=== PATIENT | male | born 1930 | race Caucasian/White ===

== ENCOUNTER 2017-02-28 10:20 | Day surgery (SDC) | payer MEDICARE ==
[~2017-02-28 10:20] MED LIST: ALLO100T30 PO; ATOR40TA PO; LEVE500T53 PO; LEVO75TA33 PO; LISI1TAB7 PO; OMEP40CA6 PO
[2017-02-28] MEDS ORDERED: SODIUM CHLORIDE 0.9% 1,000 ML IV SCH (10:31)
[2017-02-28 10:48] VITALS: BP 145/87
[2017-02-28] MEDS ORDERED: PLEASE ENTER HEIGHT AND WEIGHT MC SCH (11:00)
[2017-02-28] MEDS ORDERED: CEFAZOLIN PMX 1GM/50ML 50 ML IVPB ONE (11:00)
[2017-02-28] MEDS ORDERED: PLEASE ENTER ALLERGIES MC SCH ×2 (11:00)
[2017-02-28] MEDS ORDERED: OMEP40CA6 PO (11:08)
[2017-02-28] MEDS ORDERED: METF500T4 PO (11:08)
[2017-02-28] MEDS ORDERED: MULT-6 PO (11:09)
[2017-02-28] MEDS ORDERED: METO25TA2 PO (11:19)
[2017-02-28 11:42] LABS: BLOOD UREA NITROGEN 26 mg/dL (7-18)
[2017-02-28] MEDS ORDERED: MIDAZOLAM 1 MG/ML, 5ML ONE (12:02)
[2017-02-28] MEDS ORDERED: FENTANYL PF 100 MCG/2ML ONE (12:02)
[2017-02-28] MEDS ORDERED: CEFAZOLIN PMX 1GM/50ML 50 ML ONE (12:03)
[2017-02-28] MEDS ORDERED: LIDOCAINE 2%, 20ML ONE (12:03)
[2017-02-28] MEDS ORDERED: CEFAZOLIN 1,000 MG ONE (12:03)
[2017-02-28] MEDS ORDERED: CEPH-368 PO (12:54)
== END 2017-02-28 15:03 | disposition home or self-care (01) ==
LOC: CACL 10:20
PROVIDERS: ATTEND Internal Medicine Cardiovascular Disease
DX: Z45.010 Encounter for checking and testing of cardiac pacemaker pulse generator [battery] (principal); I49.5 Sick sinus syndrome; I10 Essential (primary) hypertension; E11.9 Type 2 diabetes mellitus without complications; F10.10 Alcohol abuse, uncomplicated; I25.10 Atherosclerotic heart disease of native coronary artery without angina pectoris; E78.5 Hyperlipidemia, unspecified; Z87.891 Personal history of nicotine dependence; E03.9 Hypothyroidism, unspecified
CPT/HCPCS: 33228; 36415; 80048; 85025; 85610; 99152; C1785; J0690; J2250; J3010; J3490

== ENCOUNTER 2017-04-19 18:10 | Emergency (ER) | payer MEDICARE ==
[~2017-04-19] VITALS: Ht 165.1 cm; Wt 80.0 kg
[~2017-04-19 18:10] MED LIST changes: +CEPH-368 PO; +METF500T4 PO; +METO25TA2 PO; +MULT-6 PO
[2017-04-19] MEDS ORDERED: SODIUM CHLORIDE FLUSH 10ML SYR IVF ONE (18:30)
[2017-04-19 19:12] LABS: BLOOD UREA NITROGEN 30 mg/dL (7-18)
[2017-04-19 19:19] LABS: IS PT STATUS REG ER OR PRE ER? YES
[2017-04-19 20:04] VITALS: BP 122/64
[2017-04-19] MEDS ORDERED: RIVAROXABAN 15 MG TABLET PO ONE (20:30)
== END 2017-04-19 21:07 | disposition home or self-care (01) ==
LOC: ED 19:29
DX: I48.92 Unspecified atrial flutter (principal); E11.9 Type 2 diabetes mellitus without complications; E78.5 Hyperlipidemia, unspecified; I10 Essential (primary) hypertension; Z87.891 Personal history of nicotine dependence; Z95.0 Presence of cardiac pacemaker
CPT/HCPCS: 36415; 71010; 80048; 82040; 83735; 83880; 84436; 84443; 84484; 85025; 85610; 85730; 93005

== ENCOUNTER 2017-06-04 10:00 | Day surgery (SDC) | payer MEDICARE ==
[~2017-06-04] VITALS: Ht 165.1 cm; Wt 81.8 kg
[2017-06-04 11:41] VITALS: BP 141/83
[2017-06-04] MEDS ORDERED: RIVA15TA PO (11:52)
[2017-06-04] MEDS ORDERED: ALBU8.5H3 IH (11:52)
[2017-06-04] MEDS ORDERED: PROPOFOL 10 MG/ML, 20ML ONE (12:13)
== END 2017-06-04 13:30 | disposition home or self-care (01) ==
LOC: CACL 10:00
PROVIDERS: ATTEND Internal Medicine Cardiovascular Disease
DX: I48.91 Unspecified atrial fibrillation (principal); E11.9 Type 2 diabetes mellitus without complications; I10 Essential (primary) hypertension; E78.5 Hyperlipidemia, unspecified; F17.210 Nicotine dependence, cigarettes, uncomplicated; E03.9 Hypothyroidism, unspecified
CPT/HCPCS: 92960; J2704

== ENCOUNTER 2017-07-23 08:17 | Emergency (ER) | payer MEDICARE ==
[~2017-07-23] VITALS: Ht 165.1 cm; Wt 82.0 kg
[~2017-07-23 08:17] MED LIST changes: +ALBU8.5H8 IH; -LEVO75TA33 PO; +LEVO75TA59 PO; +RIVA15TA PO
[2017-07-23 09:01] LABS: HEMATOCRIT 39.6 % (39.2-51.8); HEMOGLOBIN 13.3 g/dL (13.7-18.0); WHITE BLOOD COUNT 8.2 x10^3/uL (3.4-10)
[2017-07-23 09:10] LABS: BLOOD UREA NITROGEN 15 mg/dL (7-18)
[2017-07-23 10:58] VITALS: BP 120/51
== END 2017-07-23 11:00 | disposition home or self-care (01) ==
LOC: ED 08:49
DX: S80.01XA Contusion of right knee, initial encounter (principal); M25.531 Pain in right wrist; M87.837 Other osteonecrosis of right carpus; E11.9 Type 2 diabetes mellitus without complications; E78.5 Hyperlipidemia, unspecified; I10 Essential (primary) hypertension; W01.0XXA Fall on same level from slipping, tripping and stumbling without subsequent striking against object, initial encounter; Y93.89 Activity, other specified; Y92.009 Unspecified place in unspecified non-institutional (private) residence as the place of occurrence of the external cause; Y99.9 Unspecified external cause status
CPT/HCPCS: 29125; 36415; 70450; 72125; 80048; 82040; 85025; 85610; 93005; 99285

== ENCOUNTER 2017-10-04 09:52 | Inpatient (IN) | payer MEDICARE ==
[~2017-10-04] VITALS: Ht 165.1 cm; Wt 77.7 kg
[2017-10-04 10:34] VITALS: BP 150/74
[2017-10-04] MEDS ORDERED: TAMS-11 PO (10:42)
[2017-10-04] MEDS ORDERED: ACETAMINOPHEN 325 MG TABLET PO PRN (12:00)
[2017-10-04 12:05] LABS: HEMATOCRIT 38.8 % (39.2-51.8); HEMOGLOBIN 13.2 g/dL (13.7-18.0)
[2017-10-04 12:06] LABS: BLOOD UREA NITROGEN 17 mg/dL (7-18)
[2017-10-04 12:16] LABS: IS PT STATUS REG ER OR PRE ER? NO
[2017-10-04 14:01] VITALS: BP 149/94
[2017-10-04] MEDS: metFORMIN 500 MG TABLET PO SCH (16:32)
[2017-10-04] MEDS: AMIODARONE 200 MG TABLET PO SCH ×2 (16:32→21:43)
[2017-10-04 17:03] LABS: IS PT STATUS REG ER OR PRE ER? YES
[2017-10-04 21:00] VITALS: BP 151/92
[2017-10-04] MEDS: TOLTERODINE LA 2MG CAP.ER.24H PO SCH (21:00)
[2017-10-04] MEDS: SODIUM CHLORIDE FLUSH 10ML SYR IVF SCH (21:43)
[2017-10-04] MEDS: ATORVASTATIN 80 MG TABLET PO SCH (21:44)
[2017-10-04] MEDS: LEVETIRACETAM 500 MG TABLET PO SCH (21:44)
[2017-10-04 22:33] LABS: IS PT STATUS REG ER OR PRE ER? NO
[2017-10-05 00:17] VITALS: BP 142/86
[2017-10-05] MEDS: METOPROLOL SUCCINATE 25 MG TAB.ER.24H PO SCH (05:41)
[2017-10-05] MEDS: LEVOTHYROXINE 75 MCG TABLET PO SCH (05:41)
[2017-10-05 07:22] VITALS: BP 160/91
[2017-10-05] MEDS: LEVETIRACETAM 500 MG TABLET PO SCH ×2 (08:09→21:45)
[2017-10-05] MEDS: ALLOPURINOL 100 MG TABLET PO SCH (08:09)
[2017-10-05] MEDS: metFORMIN 500 MG TABLET PO SCH ×2 (08:10→16:20)
[2017-10-05] MEDS: OMEPRAZOLE 20 MG CAPSULE.DR PO SCH (08:10)
[2017-10-05] MEDS: AMIODARONE 200 MG TABLET PO SCH ×3 (08:10→21:45)
[2017-10-05] MEDS: RIVAROXABAN 15 MG TABLET PO SCH (08:10)
[2017-10-05] MEDS: SODIUM CHLORIDE FLUSH 10ML SYR IVF SCH ×2 (08:11→21:45)
[2017-10-05] MEDS: TOLTERODINE LA 2MG CAP.ER.24H PO SCH ×2 (09:00→21:00)
[2017-10-05 12:20] VITALS: BP 146/92
[2017-10-05 19:38] VITALS: BP 147/85
[2017-10-05] MEDS: ATORVASTATIN 80 MG TABLET PO SCH (21:45)
[2017-10-06 02:00] VITALS: BP 138/86
[2017-10-06 08:00] VITALS: BP 151/81
[2017-10-06] MEDS: METOPROLOL SUCCINATE 25 MG TAB.ER.24H PO SCH (08:15)
[2017-10-06] MEDS: OMEPRAZOLE 20 MG CAPSULE.DR PO SCH (08:16)
[2017-10-06] MEDS: RIVAROXABAN 15 MG TABLET PO SCH (08:16)
[2017-10-06] MEDS: AMIODARONE 200 MG TABLET PO SCH (08:16)
[2017-10-06] MEDS: LEVETIRACETAM 500 MG TABLET PO SCH (08:17)
[2017-10-06] MEDS: metFORMIN 500 MG TABLET PO SCH (08:17)
[2017-10-06] MEDS: SODIUM CHLORIDE FLUSH 10ML SYR IVF SCH (08:17)
[2017-10-06] MEDS: LEVOTHYROXINE 75 MCG TABLET PO SCH (08:17)
[2017-10-06] MEDS: ALLOPURINOL 100 MG TABLET PO SCH (08:17)
[2017-10-06] MEDS ORDERED: OXYBUTYNIN CHLORIDE 5 MG TABLET PO SCH (09:00)
[2017-10-06] MEDS ORDERED: MIDAZOLAM 1 MG/ML, 2ML IV ONE (10:30)
[2017-10-06] MEDS ORDERED: FENTANYL PF 100 MCG/2ML IV ONE (10:30)
[2017-10-06] MEDS ORDERED: FENTANYL PF 100 MCG/2ML ONE (10:46)
[2017-10-06] MEDS ORDERED: MIDAZOLAM 1 MG/ML, 5ML ONE (10:46)
[2017-10-06] MEDS ORDERED: AMIO200T42 PO (11:05)
[2017-10-06 13:41] VITALS: BP 126/84
== END 2017-10-06 16:05 | disposition home or self-care (01) | DRG 309 ==
LOC: 5SO 09:52
PROVIDERS: ADMIT Internal Medicine Cardiovascular Disease; ATTEND Internal Medicine Cardiovascular Disease
PROC: 5A2204Z Restoration of Cardiac Rhythm, Single (ICD-10-PCS; principal; 2017-10-06)
DX: I48.0 Paroxysmal atrial fibrillation (principal); D68.69 Other thrombophilia; I49.5 Sick sinus syndrome; I12.9 Hypertensive chronic kidney disease with stage 1 through stage 4 chronic kidney disease, or unspecified chronic kidney disease; E78.5 Hyperlipidemia, unspecified; I25.10 Atherosclerotic heart disease of native coronary artery without angina pectoris; N18.3 Chronic kidney disease, stage 3 (moderate); Z87.820 Personal history of traumatic brain injury; Z87.891 Personal history of nicotine dependence; Z95.0 Presence of cardiac pacemaker
CPT/HCPCS: 36415; 71010; 80048; 80061; 84439; 84443; 84484; 85014; 85018; 93005

== ENCOUNTER → 2017-12-31 | Outpatient (CLI) | payer MEDICARE ==
[~2017-12-31] MED LIST changes: +AMIO200T42 PO; +TAMS-11 PO
== END ==
LOC: CVU 15:25
PROVIDERS: ATTEND Internal Medicine Cardiovascular Disease
DX: I48.0 Paroxysmal atrial fibrillation (principal)
CPT/HCPCS: 93306

== ENCOUNTER → 2018-08-27 | Outpatient (CLI) | payer MEDICARE ==
[~2018-08-27] MED LIST changes: +METF500T17 PO; -METF500T4 PO
== END | disposition home or self-care (01) ==
LOC: CFH 11:12
PROVIDERS: ATTEND Family Medicine
DX: J98.11 Atelectasis (principal); Z91.81 History of falling

== ENCOUNTER 2019-05-26 10:07 | Day surgery (SDC) | payer MEDICARE ==
[~2019-05-26] VITALS: Ht 165.1 cm; Wt 75.0 kg
[2019-05-26 12:13] VITALS: BP 141/80
== END 2019-05-26 14:00 | disposition home or self-care (01) ==
LOC: CACL 10:07
PROVIDERS: ATTEND Internal Medicine Cardiovascular Disease
DX: I48.0 Paroxysmal atrial fibrillation (principal); E11.22 Type 2 diabetes mellitus with diabetic chronic kidney disease; I12.9 Hypertensive chronic kidney disease with stage 1 through stage 4 chronic kidney disease, or unspecified chronic kidney disease; N18.3 Chronic kidney disease, stage 3 (moderate); I25.10 Atherosclerotic heart disease of native coronary artery without angina pectoris; I34.0 Nonrheumatic mitral (valve) insufficiency; E78.5 Hyperlipidemia, unspecified; E03.9 Hypothyroidism, unspecified; E66.3 Overweight; Z68.27 Body mass index [BMI] 27.0-27.9, adult; Z72.89 Other problems related to lifestyle; Z79.84 Long term (current) use of oral hypoglycemic drugs; Z79.01 Long term (current) use of anticoagulants; Z79.890 Hormone replacement therapy; Z79.899 Other long term (current) drug therapy; Z95.0 Presence of cardiac pacemaker
CPT/HCPCS: 36415; 80048; 92960; J2704

== ENCOUNTER 2019-08-13 14:53 | Emergency (ER) | payer MEDICARE ==
[~2019-08-13] VITALS: Ht 165.1 cm; Wt 71.8 kg
[~2019-08-13 14:53] MED LIST changes: +LEVO75TA5 PO; +LEVO88TA4 PO; +LISI1TAB20 PO; -LISI1TAB7 PO; +TOLT2TAB4 PO
--- NOTE | 2019-08-13 15:41 | NUR ---
FIRST CONTACT WITH PT. REPORTS HE HAS A UTI. PT IS ON NITROFURANTOIN. "IT IS GETTING WORSE HE CAN'T PEE." PT C/O LOWER ABD PAIN. PT'S AOX4. RESPS EVEN AND UNLABORED. ALL MONITORS IN PLACE. CALL LIGHT WITHIN REACH. [place].
--- NOTE | 2019-08-13 16:22 | NUR ---
EDMD AT BEDSIDE. PT STRAIGHT CATH'D PER EDMD VERBAL ORDER. PT STRAIGHT CATH'D USING STERILE TECHNIQUE. PT TOLERATED WELL.
--- NOTE | 2019-08-13 16:35 | NUR ---
UA SENT AT THIS TIME.
[2019-08-13 16:37] VITALS: BP 173/96
--- NOTE | 2019-08-13 16:41 | NUR ---
SOME WATER PROVIDED AT THIS TIME. EDMD NOTIFIED.
[2019-08-13 16:48] LABS: MICROSCOPIC AUTO
[2019-08-13 16:48] LABS: BASOPHILS # (AUTO) 0.03 x10^3/uL (0-0.1); BASOPHILS % (AUTO) 0 % (0-1); EOSINOPHILS # (AUTO) 0.08 x10^3/uL (0-0.4); EOSINOPHILS % (AUTO) 1 % (1-7); LYMPHOCYTES # (AUTO) 0.89 x10^3/uL (1-3.4); LYMPHOCYTES % (AUTO) 11 % (22-44); MD NO; MEAN CORPUSCULAR HEMOGLOBIN 33.8 pg (27.5-34.5); MEAN CORPUSCULAR HGB CONC 32.9 g/dL (33.2-36.2); MEAN CORPUSCULAR VOLUME 102.5 fL (81-97); MEAN PLATELET VOLUME 9.7 fL (7.4-10.4); MONOCYTES # (AUTO) 0.43 x10^3/uL (0.2-0.8); MONOCYTES % (AUTO) 5 % (2-9); NEUTROPHILS # (AUTO) 6.64 x10^3/uL (1.8-6.8); NEUTROPHILS % (AUTO) 82 % (42-75); PLATELET COUNT 201 x10^3/uL (130-400); RED BLOOD COUNT 4.06 x10^6/uL (4.38-5.82); RED CELL DISTRIBUTION WIDTH 14.7 % (9.4-14.8)
[2019-08-13 16:56] LABS: ALBUMIN 2.9 g/dL (3.4-5.0); ANION GAP 12 mmol/L (5-15); CALCIUM 8.2 mg/dL (8.5-10.1); CHLORIDE 105 mmol/L (98-107); CREATININE 1.49 mg/dL (0.7-1.3)
[2019-08-13 16:57] LABS: CULTURE INDICATED? YES
--- NOTE | 2019-08-13 17:53 | NUR ---
Idris lombardi in ED - 08/13/19 at 1754 by JOSE CRUZ PT PROVIDED SMALL BAG FOR CATHETER. PT IS BLEEDING A PILLAI
--- NOTE | 2019-08-13 17:54 | NUR ---
PT IS BLEEDING FROM TIP OF PENIS. EDMD NOTIDIED AND EDMD EVALUATED.
--- NOTE | 2019-08-13 18:00 | NUR ---
Patient given discharge instructions and they have confirmed that they understand the instructions.
== END 2019-08-13 18:01 | disposition home or self-care (01) ==
LOC: ED 17:45
DX: N40.1 Benign prostatic hyperplasia with lower urinary tract symptoms (principal); R33.8 Other retention of urine; I10 Essential (primary) hypertension; E78.5 Hyperlipidemia, unspecified; E11.9 Type 2 diabetes mellitus without complications; M10.9 Gout, unspecified; Z90.89 Acquired absence of other organs
CPT/HCPCS: 36415; 51702; 80048; 81001; 82040; 85025; 87086; 99284

== ENCOUNTER 2019-08-16 10:20 | Emergency (ER) | payer MEDICARE ==
[~2019-08-16] VITALS: Ht 165.1 cm; Wt 68.0 kg
[~2019-08-16 10:20] MED LIST changes: +OMEP40CA42 PO; -OMEP40CA6 PO
--- NOTE | 2019-08-16 10:23 | NUR ---
patient arrives with who rode in ambulance with him from home where he called ems for pain, blood in urine and blood in stool. patient had a catheter placed here on for retention. then saturday he began having blood in stool on saturday. he states he has excrutiating pain in penis. he states his penis was swollen from unknown reasons last preventing urination. reports they stated no infection at that time. he arrives today with pain that began last in penis that has become unbearable. on further investigation of catheter he has a leg bag that has about 300 cc roughly of yellow urine and states she emptied it at 07:00 this morning. the penis is uncircumcised and the penis and when tried to pull the foreskin back it is stuck and there appears to be purulent drainage there. he states he never pulls foreskin back to clean meatus. placed on monitor, rails up. aox4.
--- NOTE | 2019-08-16 10:30 | NUR ---
patients leg back had no leg anchoring device on arrival and he wasnt given a nighttime large urinary drainage bag, and reports no education on care. will place anchor device to leg and review patterson care and get a drainage bag for nighttime. patient to have urology consult.
[2019-08-16 10:59] LABS: BASOPHILS # (AUTO) 0.03 x10^3/uL (0-0.1); BASOPHILS % (AUTO) 0 % (0-1); EOSINOPHILS # (AUTO) 0.18 x10^3/uL (0-0.4); EOSINOPHILS % (AUTO) 3 % (1-7); LYMPHOCYTES # (AUTO) 1.27 x10^3/uL (1-3.4); LYMPHOCYTES % (AUTO) 19 % (22-44); MD NO; MEAN CORPUSCULAR HEMOGLOBIN 34.5 pg (27.5-34.5); MEAN CORPUSCULAR HGB CONC 33.2 g/dL (33.2-36.2); MEAN CORPUSCULAR VOLUME 103.9 fL (81-97); MEAN PLATELET VOLUME 10.7 fL (7.4-10.4); MONOCYTES # (AUTO) 0.46 x10^3/uL (0.2-0.8); MONOCYTES % (AUTO) 7 % (2-9); NEUTROPHILS # (AUTO) 4.83 x10^3/uL (1.8-6.8); NEUTROPHILS % (AUTO) 71 % (42-75); PLATELET COUNT 194 x10^3/uL (130-400); RED BLOOD COUNT 3.73 x10^6/uL (4.38-5.82); RED CELL DISTRIBUTION WIDTH 14.7 % (9.4-14.8)
--- NOTE | 2019-08-16 11:07 | NUR ---
lab to redraw pt
--- NOTE | 2019-08-16 11:18 | NUR ---
URINE SENT. BLOOD REDRAWN AND IN LAB. PATIENT NOW HAS DAUGHTER AND AT BEDSIDE. GOT HIM A NIGHTTIME DRAINAGE BAG FOR HARDING CATHETER AND DID TRAINING ON CHANGING IT OUT, KEEPING DEVICE CLEAN, HARDING CARE WITH SOAP AND WATER DAILY, KEEPING BAGS BELOW LEVEL OF BLADDER FOR DRAINAGE. SHOW UNDERSTANDING.
[2019-08-16 11:34] LABS: ANION GAP 8 mmol/L (5-15); CHLORIDE 110 mmol/L (98-107); CREATININE 1.49 mg/dL (0.7-1.3)
--- NOTE | 2019-08-16 12:03 | NUR ---
rounded on this patient, , and daughter. education provided on the leg bag. was able to verballize the steps and precautions needed to care for the leg bag. Education given to daughter outside of room on switching, draining, cleaning, and repositioning. She verbalized understanding.
[2019-08-16 12:04] VITALS: BP 124/76
--- NOTE | 2019-08-16 12:05 | NUR ---
patient educated by MD about discharge instructions and reinforced by myself. Reviewed creams he is to use to help rectal bleeding and pain in penis. reviewed patterson care, nighttime larger bag and hygiene of care at length. all show understanding. reviewed to call urologist tomorrow and return if bleeding gers worse.
== END 2019-08-16 12:26 | disposition home or self-care (01) ==
LOC: ED 11:23
DX: T83.098A Other mechanical complication of other urinary catheter, initial encounter (principal); K64.4 Residual hemorrhoidal skin tags; N47.1 Phimosis; I10 Essential (primary) hypertension; E78.5 Hyperlipidemia, unspecified; E11.9 Type 2 diabetes mellitus without complications; Z95.0 Presence of cardiac pacemaker
CPT/HCPCS: 36415; 80048; 85025; 99282; 99284

== ENCOUNTER 2020-03-31 12:59 | Inpatient (IN) | payer MEDICARE ==
[~2020-03-31] VITALS: Ht 162.6 cm; Wt 83.0 kg
--- NOTE | 2020-03-31 13:15 | NUR ---
PT PLACED ON ALL ROOM MONITORING. URINE COLLECTED WITH URINAL/ORDERED/SENT TO LAB. CALL LIGHT WITHIN REACH. AWAITING ERP TO SEE.
--- NOTE | 2020-03-31 13:20 | NUR ---
PT DENIES COUGH BUT HEARD COUGHING. WHEN ASKED, PT STATES "I JUST GET MUCOUS IN MY THROAT. IT'S BEEN GOING ON FOR YEARS.". ERP NOTIFIED.
[2020-03-31 13:52] LABS: MICROSCOPIC AUTO
[2020-03-31] MEDS ORDERED: ACETAMINOPHEN 325 MG TABLET PO ONE (14:00)
[2020-03-31] MEDS ORDERED: PIPERACILLIN/TAZO/PMX 3.375GM 50 ML IVPB ONE (14:00)
[2020-03-31 14:19] LABS: MEAN CORPUSCULAR HEMOGLOBIN 31.3 pg (27.5-34.5); MEAN CORPUSCULAR HGB CONC 33.3 g/dL (33.2-36.2); MEAN PLATELET VOLUME 9.7 fL (7.4-10.4); PLATELET COUNT 193 x10^3/uL (130-400); RED BLOOD COUNT 3.47 x10^6/uL (4.38-5.82); RED CELL DISTRIBUTION WIDTH 16.3 % (9.4-14.8)
[2020-03-31 14:24] LABS: INTERNATIONAL NORMALIZED RATIO 0.99 (0.93-1.1); PROTHROMBIN TIME 10.5 Seconds (9.6-11.5)
[2020-03-31 14:27] LABS: ALBUMIN 2.4 g/dL (3.4-5.0); ANION GAP 7 mmol/L (5-15); CALCIUM 7.5 mg/dL (8.5-10.1); CHLORIDE 109 mmol/L (98-107)
[2020-03-31 14:32] LABS: ALANINE AMINOTRANSFERASE 24 U/L (12-78); ALKALINE PHOSPHATASE 42 U/L (45-117); BILIRUBIN,TOTAL 0.5 mg/dL (0.2-1.0); CREATININE 1.85 mg/dL (0.7-1.3); TOTAL PROTEIN 5.3 g/dL (6.4-8.2)
[2020-03-31] MEDS ORDERED: PIPERACILLIN/TAZO/PMX 3.375GM 50 ML ONE (14:34)
[2020-03-31] MEDS ORDERED: ACETAMINOPHEN 325 MG TABLET ONE (14:34)
[2020-03-31 14:38] LABS: TROPONIN I 0.138 ng/mL (0.000-0.045)
--- NOTE | 2020-03-31 14:45 | NUR ---
CONFIRMED WITH ERP INTENT FOR FLUID BOLUS IN REGARDS TO SEPSIS. PER ERP, BOLUS TO BE CONSERVATIVE, LESS THAN 10ML/KG D/T PT'S HEART FAILURE AND ELEVATED BNP.
[2020-03-31 14:47] LABS: MD YES
[2020-03-31 14:48] LABS: BAND#(MANUAL) 1.08 x10^3/uL; BANDS%(MANUAL) 5 % (0-7); LYMPH#(MANUAL) 1.94 x10^3/uL (1-3.4); LYMPHS% (MANUAL) 9 % (22-44); MONOS#(MANUAL) 0.65 x10^3/uL (0.3-2.7); MONOS% (MANUAL) 3 % (2-9); SEG#(MANUAL) 17.93 x10^3/uL (1.8-6.8); SEGS% (MANUAL) 83 % (42-75)
[2020-03-31 14:49] LABS: <PLATELET ESTIMATE> ADEQUATE; <PLT MORPHOLOGY> NORMAL PLT MORPH; <RBC MORPHOLOGY> NORMAL
[2020-03-31] MEDS ORDERED: SODIUM CHLORIDE 0.9% 1,000ML IVBOLUS ONE ×2 (15:00→16:00)
--- NOTE | 2020-03-31 15:01 | NUR ---
ANTIBIOTIC INFUSING PER ERP ORDER AFTER CONFIRMATION OF BC X 2 DRAWN. TYLENOL PROVIDED, PT ABLE TO SWALLOW WITHOUT DIFFICULTY. VSS/UPDATED IN COMPUTER. PT TO CT.
--- NOTE | 2020-03-31 15:17 | NUR ---
TOMASZ [phone]
--- NOTE | 2020-03-31 15:42 | NUR ---
[phone], TOMASZ () HOME PHONE.
[2020-03-31] MEDS ORDERED: ATOR40TA PO (15:49)
[2020-03-31] MEDS ORDERED: COLC0.6T37 PO (15:51)
[2020-03-31] MEDS ORDERED: ALLO100T64 PO (15:51)
--- NOTE | 2020-03-31 16:37 | NUR ---
2ND LITER NS BOLUS ORDERED/GIVEN. PT SLEEPING, AROUSABLE TO VOICE. CALL LIGHT WITHIN REACH. URINAL WITHIN REACH. VSS.
--- NOTE | 2020-03-31 17:46 | NUR ---
2ND LITER NS BOLUS COMPLETED. VS UPDATED IN COMPUTER. LAB IN TO DRAW.
[2020-03-31] MEDS ORDERED: PROMETHAZINE 25 MG/ML, 1ML IM PRN (18:30)
[2020-03-31] MEDS ORDERED: PHARMACY MAY ADJ FOR RENAL FX MC PRN (18:30)
[2020-03-31] MEDS ORDERED: DOXYCYCLINE 100 MG in DEXTROSE 5% 250 ML IV SCH (18:30)
[2020-03-31] MEDS ORDERED: ACETAMINOPHEN 325 MG TABLET PO PRN (18:30)
[2020-03-31 18:49] LABS: TROPONIN I 0.104 ng/mL (0.000-0.045)
--- NOTE | 2020-03-31 18:50 | NUR ---
REPORT CALLED TO [facility] READY FOR TRANSPORT.
[2020-03-31 20:08] VITALS: BP 131/77
[2020-03-31] MEDS: SODIUM CHLORIDE 0.9% 1,000 ML IV SCH (20:56)
[2020-03-31] MEDS: ATORVASTATIN 40 MG TABLET PO SCH (20:59)
[2020-03-31] MEDS: RIVAROXABAN 15 MG TABLET PO SCH (20:59)
[2020-03-31] MEDS: AMIODARONE 200 MG TABLET PO SCH (20:59)
[2020-03-31] MEDS: LEVETIRACETAM 500 MG TABLET PO SCH (20:59)
[2020-03-31] MEDS: DOXYCYCLINE 100MG TABLET PO SCH (20:59)
[2020-03-31] MEDS: CEFTRIAXONE PMX 1GM/50ML 50 ML IV SCH (21:13)
[2020-04-01 00:20] VITALS: BP 155/78
[2020-04-01 00:59] LABS: TROPONIN I 0.052 ng/mL (0.000-0.045)
[2020-04-01] MEDS: LEVOTHYROXINE 75 MCG TABLET PO SCH (05:18)
[2020-04-01 05:42] LABS: CALCIUM 7.5 mg/dL (8.5-10.1); CHLORIDE 114 mmol/L (98-107)
[2020-04-01 05:45] LABS: BASOPHILS # (AUTO) 0.02 x10^3/uL (0-0.1); BASOPHILS % (AUTO) 0 % (0-1); EOSINOPHILS # (AUTO) 0.07 x10^3/uL (0-0.4); EOSINOPHILS % (AUTO) 1 % (1-7); LYMPHOCYTES # (AUTO) 0.79 x10^3/uL (1-3.4); LYMPHOCYTES % (AUTO) 6 % (22-44); MD NO; MEAN CORPUSCULAR HEMOGLOBIN 31.3 pg (27.5-34.5); MEAN CORPUSCULAR HGB CONC 33.3 g/dL (33.2-36.2); MEAN PLATELET VOLUME 9.8 fL (7.4-10.4); MONOCYTES # (AUTO) 0.25 x10^3/uL (0.2-0.8); MONOCYTES % (AUTO) 2 % (2-9); NEUTROPHILS # (AUTO) 11.64 x10^3/uL (1.8-6.8); NEUTROPHILS % (AUTO) 91 % (42-75); PLATELET COUNT 155 x10^3/uL (130-400); RED BLOOD COUNT 3.42 x10^6/uL (4.38-5.82); RED CELL DISTRIBUTION WIDTH 16.4 % (9.4-14.8)
[2020-04-01 05:46] LABS: ALANINE AMINOTRANSFERASE 22 U/L (12-78); ALKALINE PHOSPHATASE 39 U/L (45-117); ANION GAP 8 mmol/L (5-15); BILIRUBIN,TOTAL 0.4 mg/dL (0.2-1.0); CREATININE 1.47 mg/dL (0.7-1.3)
[2020-04-01 07:53] VITALS: BP 144/76
[2020-04-01] MEDS: TAMSULOSIN 0.4 MG CAP.ER.24H PO SCH (10:32)
[2020-04-01] MEDS: SODIUM CHLORIDE 0.9% 1,000 ML IV SCH (10:32)
[2020-04-01] MEDS: DOXYCYCLINE 100MG TABLET PO SCH ×2 (10:33→20:06)
[2020-04-01] MEDS: ALLOPURINOL 100 MG TABLET PO SCH (10:33)
[2020-04-01] MEDS: AMIODARONE 200 MG TABLET PO SCH ×2 (10:33→20:06)
[2020-04-01] MEDS: LEVETIRACETAM 500 MG TABLET PO SCH ×2 (10:33→20:06)
[2020-04-01] MEDS: TOLTERODINE 2MG TABLET PO SCH (12:38)
[2020-04-01 13:58] VITALS: BP 109/66
[2020-04-01] MEDS: RIVAROXABAN 15 MG TABLET PO SCH (17:35)
[2020-04-01] MEDS ORDERED: SODIUM CHLORIDE 0.9% 1,000 ML IV SCH (18:17)
[2020-04-01 18:29] VITALS: BP 123/72
[2020-04-01] MEDS: ATORVASTATIN 40 MG TABLET PO SCH (20:06)
[2020-04-01] MEDS: CEFTRIAXONE PMX 1GM/50ML 50 ML IV SCH (20:06)
[2020-04-02] VITALS: BP 154/83
[2020-04-02 03:19] LABS: BASOPHILS % (AUTO) 0 % (0-1); EOSINOPHILS # (AUTO) 0.12 x10^3/uL (0-0.4); EOSINOPHILS % (AUTO) 1 % (1-7); LYMPHOCYTES # (AUTO) 0.93 x10^3/uL (1-3.4); LYMPHOCYTES % (AUTO) 10 % (22-44); MD NO; MEAN CORPUSCULAR HGB CONC 32.9 g/dL (33.2-36.2); MEAN PLATELET VOLUME 10.3 fL (7.4-10.4); MONOCYTES # (AUTO) 0.47 x10^3/uL (0.2-0.8); MONOCYTES % (AUTO) 5 % (2-9); NEUTROPHILS # (AUTO) 7.43 x10^3/uL (1.8-6.8); NEUTROPHILS % (AUTO) 83 % (42-75); PLATELET COUNT 138 x10^3/uL (130-400); RED BLOOD COUNT 3.48 x10^6/uL (4.38-5.82); RED CELL DISTRIBUTION WIDTH 16.3 % (9.4-14.8)
[2020-04-02 03:30] LABS: ANION GAP 6 mmol/L (5-15); CALCIUM 7.6 mg/dL (8.5-10.1); CHLORIDE 114 mmol/L (98-107); CREATININE 1.67 mg/dL (0.7-1.3)
[2020-04-02 04:09] LABS: FREE T4 (FREE THYROXINE) 1.18 ng/dL (0.76-1.46)
[2020-04-02] MEDS: LEVOTHYROXINE 75 MCG TABLET PO SCH (05:08)
[2020-04-02 06:54] VITALS: BP 176/91
[2020-04-02] MEDS: TAMSULOSIN 0.4 MG CAP.ER.24H PO SCH (09:30)
[2020-04-02] MEDS: TOLTERODINE 2MG TABLET PO SCH (09:30)
[2020-04-02] MEDS: ALLOPURINOL 100 MG TABLET PO SCH (09:31)
[2020-04-02] MEDS: DOXYCYCLINE 100MG TABLET PO SCH ×2 (09:31→21:01)
[2020-04-02] MEDS: LEVETIRACETAM 500 MG TABLET PO SCH ×2 (09:31→21:01)
[2020-04-02] MEDS: AMIODARONE 200 MG TABLET PO SCH ×2 (09:31→21:01)
[2020-04-02 15:14] VITALS: BP 120/70
[2020-04-02] MEDS: RIVAROXABAN 15 MG TABLET PO SCH (17:18)
[2020-04-02] MEDS ORDERED: SODIUM CHLORIDE 0.9% 1,000 ML IV SCH (18:17)
[2020-04-02 19:09] VITALS: BP 114/73
[2020-04-02] MEDS: CEFTRIAXONE PMX 1GM/50ML 50 ML IV SCH (21:00)
[2020-04-02] MEDS: ATORVASTATIN 40 MG TABLET PO SCH (21:01)
[2020-04-03 00:44] VITALS: BP 135/81
[2020-04-03] MEDS: LEVOTHYROXINE 75 MCG TABLET PO SCH (05:46)
[2020-04-03 06:24] LABS: ANION GAP 7 mmol/L (5-15); CALCIUM 7.7 mg/dL (8.5-10.1); CHLORIDE 114 mmol/L (98-107)
[2020-04-03 06:25] LABS: CREATININE 1.74 mg/dL (0.7-1.3)
[2020-04-03] MEDS: DOXYCYCLINE 100MG TABLET PO SCH (08:29)
[2020-04-03 08:30] VITALS: BP 168/84
[2020-04-03] MEDS: LEVETIRACETAM 500 MG TABLET PO SCH ×2 (08:30→20:33)
[2020-04-03] MEDS: TOLTERODINE 2MG TABLET PO SCH (08:30)
[2020-04-03] MEDS: AMIODARONE 200 MG TABLET PO SCH ×2 (08:30→20:33)
[2020-04-03] MEDS: TAMSULOSIN 0.4 MG CAP.ER.24H PO SCH (08:30)
[2020-04-03] MEDS: ALLOPURINOL 100 MG TABLET PO SCH (08:30)
[2020-04-03 13:47] VITALS: BP 122/74
[2020-04-03] MEDS: RIVAROXABAN 15 MG TABLET PO SCH (17:25)
[2020-04-03 19:46] VITALS: BP 133/75
[2020-04-03] MEDS: CEFTRIAXONE PMX 1GM/50ML 50 ML IV SCH (20:33)
[2020-04-03] MEDS: ATORVASTATIN 40 MG TABLET PO SCH (20:33)
[2020-04-04 00:06] VITALS: BP 167/75
[2020-04-04] MEDS: ASPIRIN 81 MG TABLET EC PO SCH (05:12)
[2020-04-04] MEDS: SODIUM CHLORIDE 0.9% 1,000 ML IV SCH ×2 (05:13→21:43)
[2020-04-04] MEDS: LEVOTHYROXINE 75 MCG TABLET PO SCH (05:13)
[2020-04-04 05:36] LABS: CHLORIDE 114 mmol/L (98-107)
[2020-04-04 05:41] LABS: ANION GAP 7 mmol/L (5-15); CALCIUM 7.8 mg/dL (8.5-10.1); CREATININE 1.64 mg/dL (0.7-1.3)
[2020-04-04 07:37] VITALS: BP 126/75
[2020-04-04] MEDS: LEVETIRACETAM 500 MG TABLET PO SCH ×2 (08:51→20:24)
[2020-04-04] MEDS: ALLOPURINOL 100 MG TABLET PO SCH (08:51)
[2020-04-04] MEDS: TAMSULOSIN 0.4 MG CAP.ER.24H PO SCH (08:51)
[2020-04-04] MEDS: CALCIUM/VITAMIN D3 250-125 TABLET PO SCH ×2 (08:51→20:24)
[2020-04-04] MEDS: TOLTERODINE 2MG TABLET PO SCH (08:51)
[2020-04-04] MEDS: AMIODARONE 200 MG TABLET PO SCH ×2 (08:51→20:23)
[2020-04-04] MEDS: MAGNESIUM HYDROXIDE 8%, 30ML UDC PO PRN (10:37)
[2020-04-04 13:09] VITALS: BP 114/69
[2020-04-04] MEDS: AMPICILLIN 2 GM in SODIUM CHLORIDE 0.9% 100 ML IV SCH ×2 (14:23→19:57)
[2020-04-04] MEDS ORDERED: AMPICILLIN 2 GM in SODIUM CHLORIDE 0.9% 100 ML IV SCH (14:30)
[2020-04-04] MEDS: RIVAROXABAN 15 MG TABLET PO SCH (16:44)
[2020-04-04] MEDS: ACETAMINOPHEN 325 MG TABLET PO PRN (16:57)
[2020-04-04 19:47] VITALS: BP 123/76
[2020-04-04] MEDS: SENNA/DOCUSATE TABLET PO SCH (20:23)
[2020-04-04] MEDS: BISACODYL 10 MG SUPP PR PRN (20:23)
[2020-04-04] MEDS: ATORVASTATIN 40 MG TABLET PO SCH (20:24)
[2020-04-04] MEDS: CEFTRIAXONE PMX 2GM/50ML 50 ML IV SCH (21:40)
[2020-04-05 00:31] VITALS: BP 175/80
[2020-04-05] MEDS: AMPICILLIN 2 GM in SODIUM CHLORIDE 0.9% 100 ML IV SCH ×4 (02:05→20:30)
[2020-04-05 05:54] LABS: HCT (SEDRATE) 28.9 % (39.2-51.8)
[2020-04-05 06:03] LABS: ANION GAP 5 mmol/L (5-15); CALCIUM 7.7 mg/dL (8.5-10.1); CHLORIDE 115 mmol/L (98-107); CREATININE 1.66 mg/dL (0.7-1.3)
[2020-04-05] MEDS: ASPIRIN 81 MG TABLET EC PO SCH (06:29)
[2020-04-05] MEDS: LEVOTHYROXINE 75 MCG TABLET PO SCH (06:29)
[2020-04-05 06:38] VITALS: BP 163/81
[2020-04-05] MEDS: LEVETIRACETAM 500 MG TABLET PO SCH ×2 (09:12→20:42)
[2020-04-05] MEDS: AMIODARONE 200 MG TABLET PO SCH ×2 (09:12→20:42)
[2020-04-05] MEDS: CALCIUM/VITAMIN D3 250-125 TABLET PO SCH ×2 (09:13→20:42)
[2020-04-05] MEDS: ALLOPURINOL 300 MG TABLET PO SCH (09:13)
[2020-04-05] MEDS: TOLTERODINE 2MG TABLET PO SCH (09:13)
[2020-04-05] MEDS: TAMSULOSIN 0.4 MG CAP.ER.24H PO SCH (09:13)
[2020-04-05] MEDS: SODIUM CHLORIDE 0.9% 1,000 ML IV SCH (14:11)
[2020-04-05] MEDS: RIVAROXABAN 15 MG TABLET PO SCH (15:40)
[2020-04-05 16:26] LABS: ALANINE AMINOTRANSFERASE 16 U/L (12-78)
[2020-04-05 16:28] LABS: ALKALINE PHOSPHATASE 38 U/L (45-117)
[2020-04-05] MEDS: REMDESIVIR 100 MG in SODIUM CHLORIDE 0.9% 250 ML IVPB SCH (16:35)
[2020-04-05 19:13] VITALS: BP 154/84
[2020-04-05] MEDS: ACETAMINOPHEN 325 MG TABLET PO PRN (20:41)
[2020-04-05] MEDS: SENNA/DOCUSATE TABLET PO SCH (20:41)
[2020-04-05] MEDS: ATORVASTATIN 40 MG TABLET PO SCH (20:42)
[2020-04-05] MEDS: CEFTRIAXONE PMX 2GM/50ML 50 ML IV SCH (21:29)
[2020-04-06 01:18] VITALS: BP 161/78
[2020-04-06] MEDS: AMPICILLIN 2 GM in SODIUM CHLORIDE 0.9% 100 ML IV SCH ×4 (01:21→19:40)
[2020-04-06] MEDS: SODIUM CHLORIDE 0.9% 1,000 ML IV SCH (06:11)
[2020-04-06] MEDS: ASPIRIN 81 MG TABLET EC PO SCH (06:11)
[2020-04-06] MEDS: LEVOTHYROXINE 75 MCG TABLET PO SCH (06:12)
[2020-04-06] MEDS: ACETAMINOPHEN 325 MG TABLET PO PRN (06:16)
[2020-04-06 06:33] LABS: ALANINE AMINOTRANSFERASE 15 U/L (12-78); ALBUMIN 2.2 g/dL (3.4-5.0); ANION GAP 7 mmol/L (5-15); CHLORIDE 115 mmol/L (98-107)
[2020-04-06 06:36] LABS: ALKALINE PHOSPHATASE 43 U/L (45-117); BILIRUBIN,TOTAL 0.4 mg/dL (0.2-1.0); CREATININE 1.55 mg/dL (0.7-1.3); TOTAL PROTEIN 5.7 g/dL (6.4-8.2)
[2020-04-06 07:09] VITALS: BP 148/81
[2020-04-06] MEDS: CALCIUM/VITAMIN D3 250-125 TABLET PO SCH ×2 (08:35→20:38)
[2020-04-06] MEDS: MAGNESIUM HYDROXIDE 8%, 30ML UDC PO PRN (08:35)
[2020-04-06] MEDS: TOLTERODINE 2MG TABLET PO SCH (08:35)
[2020-04-06] MEDS: ALLOPURINOL 300 MG TABLET PO SCH (08:36)
[2020-04-06] MEDS: AMIODARONE 200 MG TABLET PO SCH ×2 (08:36→20:39)
[2020-04-06] MEDS: LEVETIRACETAM 500 MG TABLET PO SCH ×2 (08:36→20:39)
[2020-04-06] MEDS: TAMSULOSIN 0.4 MG CAP.ER.24H PO SCH (08:36)
[2020-04-06] MEDS ORDERED: MEDROL 4MG DOSEPAK PO SCH (10:30)
[2020-04-06] MEDS: ACETAMINOPHEN 325 MG TABLET PO SCH ×2 (11:25→17:25)
[2020-04-06 15:04] VITALS: BP 125/65
[2020-04-06] MEDS: RIVAROXABAN 15 MG TABLET PO SCH (17:25)
[2020-04-06] MEDS: REMDESIVIR 100 MG in SODIUM CHLORIDE 0.9% 250 ML IVPB SCH (17:25)
[2020-04-06 20:25] VITALS: BP 151/78
[2020-04-06] MEDS: CEFTRIAXONE PMX 2GM/50ML 50 ML IV SCH (20:37)
[2020-04-06] MEDS: SENNA/DOCUSATE TABLET PO SCH (20:38)
[2020-04-06] MEDS: ATORVASTATIN 40 MG TABLET PO SCH (20:39)
[2020-04-07] MEDS: ACETAMINOPHEN 325 MG TABLET PO SCH ×4 (00:02→17:06)
[2020-04-07 01:10] VITALS: BP 168/80
[2020-04-07] MEDS: AMPICILLIN 2 GM in SODIUM CHLORIDE 0.9% 100 ML IV SCH ×4 (02:09→20:52)
[2020-04-07] MEDS ORDERED: SODIUM CHLORIDE INHALATION 7%, 4 ML NPPB ONE (04:30)
[2020-04-07] MEDS: ASPIRIN 81 MG TABLET EC PO SCH (05:39)
[2020-04-07] MEDS: LEVOTHYROXINE 75 MCG TABLET PO SCH (05:41)
[2020-04-07 05:44] LABS: PLATELET COUNT 239 x10^3/uL (130-400)
[2020-04-07 05:52] LABS: ALBUMIN 2.4 g/dL (3.4-5.0); ANION GAP 9 mmol/L (5-15); CALCIUM 8.5 mg/dL (8.5-10.1); CHLORIDE 111 mmol/L (98-107)
[2020-04-07 05:55] LABS: ALANINE AMINOTRANSFERASE 17 U/L (12-78); ALKALINE PHOSPHATASE 47 U/L (45-117); BILIRUBIN,TOTAL 0.1 mg/dL (0.2-1.0); TOTAL PROTEIN 6.3 g/dL (6.4-8.2)
[2020-04-07 06:01] LABS: INTERNATIONAL NORMALIZED RATIO 1.32 (0.93-1.1)
[2020-04-07 07:30] VITALS: BP 134/78
[2020-04-07] MEDS: AMIODARONE 200 MG TABLET PO SCH ×2 (08:30→20:53)
[2020-04-07] MEDS: LEVETIRACETAM 500 MG TABLET PO SCH ×2 (08:45→20:52)
[2020-04-07] MEDS: SODIUM CHLORIDE 0.9% 1,000 ML IV SCH (08:45)
[2020-04-07] MEDS: TOLTERODINE 2MG TABLET PO SCH (08:45)
[2020-04-07] MEDS: ALLOPURINOL 300 MG TABLET PO SCH (08:46)
[2020-04-07] MEDS: CALCIUM/VITAMIN D3 250-125 TABLET PO SCH ×2 (08:46→20:52)
[2020-04-07] MEDS: TAMSULOSIN 0.4 MG CAP.ER.24H PO SCH (08:46)
[2020-04-07 13:35] VITALS: BP 118/67
[2020-04-07] MEDS: RIVAROXABAN 15 MG TABLET PO SCH (17:06)
[2020-04-07] MEDS: REMDESIVIR 100 MG in SODIUM CHLORIDE 0.9% 250 ML IVPB SCH (17:06)
[2020-04-07 19:05] VITALS: BP 102/61
[2020-04-07] MEDS: ATORVASTATIN 40 MG TABLET PO SCH (20:52)
[2020-04-07] MEDS: SENNA/DOCUSATE TABLET PO SCH (20:53)
[2020-04-07 20:56] VITALS: BP 125/72
[2020-04-07] MEDS: CEFTRIAXONE PMX 2GM/50ML 50 ML IV SCH (21:51)
[2020-04-08 00:54] VITALS: BP 155/79
[2020-04-08] MEDS: AMPICILLIN 2 GM in SODIUM CHLORIDE 0.9% 100 ML IV SCH ×3 (02:11→16:11)
[2020-04-08] MEDS: ACETAMINOPHEN 325 MG TABLET PO SCH ×4 (02:12→22:43)
[2020-04-08] MEDS: ASPIRIN 81 MG TABLET EC PO SCH (05:58)
[2020-04-08] MEDS: SODIUM CHLORIDE 0.9% 1,000 ML IV SCH (05:58)
[2020-04-08] MEDS: LEVOTHYROXINE 75 MCG TABLET PO SCH (05:59)
[2020-04-08 06:33] LABS: INTERNATIONAL NORMALIZED RATIO 1.26 (0.93-1.1); PROTHROMBIN TIME 13.4 Seconds (9.6-11.5)
[2020-04-08 06:38] LABS: ALBUMIN 2.3 g/dL (3.4-5.0); ANION GAP 7 mmol/L (5-15); CALCIUM 7.8 mg/dL (8.5-10.1); CHLORIDE 113 mmol/L (98-107)
[2020-04-08 06:42] LABS: ALANINE AMINOTRANSFERASE 14 U/L (12-78); ALKALINE PHOSPHATASE 43 U/L (45-117); BILIRUBIN,TOTAL 0.3 mg/dL (0.2-1.0); TOTAL PROTEIN 5.9 g/dL (6.4-8.2)
[2020-04-08 09:03] VITALS: BP 166/78
[2020-04-08] MEDS: AMIODARONE 200 MG TABLET PO SCH ×2 (10:13→22:44)
[2020-04-08] MEDS: TAMSULOSIN 0.4 MG CAP.ER.24H PO SCH (10:13)
[2020-04-08] MEDS: CALCIUM/VITAMIN D3 250-125 TABLET PO SCH ×2 (10:13→22:43)
[2020-04-08] MEDS: TOLTERODINE 2MG TABLET PO SCH (10:13)
[2020-04-08] MEDS: ALLOPURINOL 300 MG TABLET PO SCH (10:13)
[2020-04-08] MEDS: LEVETIRACETAM 500 MG TABLET PO SCH ×2 (10:13→22:44)
[2020-04-08 13:08] VITALS: BP 143/74
[2020-04-08 17:40] VITALS: BP 134/73
[2020-04-08] MEDS: RIVAROXABAN 15 MG TABLET PO SCH (17:46)
[2020-04-08] MEDS: REMDESIVIR 100 MG in SODIUM CHLORIDE 0.9% 250 ML IVPB SCH (17:46)
[2020-04-08 19:04] VITALS: BP 127/66
[2020-04-08] MEDS: CEFTRIAXONE PMX 2GM/50ML 50 ML IV SCH (22:43)
[2020-04-08] MEDS: SENNA/DOCUSATE TABLET PO SCH (22:44)
[2020-04-08] MEDS: ATORVASTATIN 40 MG TABLET PO SCH (22:44)
[2020-04-09] MEDS: SODIUM CHLORIDE 0.9% 1,000 ML IV SCH ×2 (00:29→17:08)
[2020-04-09] MEDS: AMPICILLIN 2 GM in SODIUM CHLORIDE 0.9% 100 ML IV SCH ×4 (00:30→19:43)
[2020-04-09 01:39] VITALS: BP 114/73
[2020-04-09] MEDS: ACETAMINOPHEN 325 MG TABLET PO SCH ×4 (02:00→21:28)
[2020-04-09 05:47] LABS: ALBUMIN 2.1 g/dL (3.4-5.0); ANION GAP 8 mmol/L (5-15); CALCIUM 7.6 mg/dL (8.5-10.1); CHLORIDE 115 mmol/L (98-107)
[2020-04-09 05:51] LABS: ALANINE AMINOTRANSFERASE 15 U/L (12-78); ALKALINE PHOSPHATASE 41 U/L (45-117); BILIRUBIN,TOTAL 0.2 mg/dL (0.2-1.0); CREATININE 1.76 mg/dL (0.7-1.3); TOTAL PROTEIN 5.4 g/dL (6.4-8.2)
[2020-04-09] MEDS: LEVOTHYROXINE 75 MCG TABLET PO SCH (06:07)
[2020-04-09] MEDS: ASPIRIN 81 MG TABLET EC PO SCH (06:07)
[2020-04-09 08:45] VITALS: BP 149/76
[2020-04-09] MEDS: TAMSULOSIN 0.4 MG CAP.ER.24H PO SCH (09:04)
[2020-04-09] MEDS: LEVETIRACETAM 500 MG TABLET PO SCH ×2 (09:04→21:28)
[2020-04-09] MEDS: CALCIUM/VITAMIN D3 250-125 TABLET PO SCH ×2 (09:05→21:28)
[2020-04-09] MEDS: TOLTERODINE 2MG TABLET PO SCH (09:05)
[2020-04-09] MEDS: ALLOPURINOL 300 MG TABLET PO SCH (09:05)
[2020-04-09] MEDS: AMIODARONE 200 MG TABLET PO SCH ×2 (09:05→21:29)
[2020-04-09 14:33] VITALS: BP 128/73
[2020-04-09] MEDS ORDERED: ACETAMINOPHEN 650 MG/20.3 ML UDC ONE (16:59)
[2020-04-09] MEDS: REMDESIVIR 100 MG in SODIUM CHLORIDE 0.9% 250 ML IVPB SCH (17:03)
[2020-04-09] MEDS: RIVAROXABAN 15 MG TABLET PO SCH (17:03)
[2020-04-09 19:50] VITALS: BP 146/74
[2020-04-09] MEDS: CEFTRIAXONE PMX 2GM/50ML 50 ML IV SCH (21:27)
[2020-04-09] MEDS: ATORVASTATIN 40 MG TABLET PO SCH (21:28)
[2020-04-09] MEDS: SENNA/DOCUSATE TABLET PO SCH (21:29)
[2020-04-10 00:36] VITALS: BP 159/76
[2020-04-10] MEDS: AMPICILLIN 2 GM in SODIUM CHLORIDE 0.9% 100 ML IV SCH ×4 (01:45→21:47)
[2020-04-10] MEDS: ACETAMINOPHEN 325 MG TABLET PO SCH ×4 (03:17→21:47)
[2020-04-10 05:34] LABS: ANION GAP 7 mmol/L (5-15); CALCIUM 7.7 mg/dL (8.5-10.1); CHLORIDE 117 mmol/L (98-107); CREATININE 1.67 mg/dL (0.7-1.3)
[2020-04-10] MEDS: LEVOTHYROXINE 75 MCG TABLET PO SCH (05:46)
[2020-04-10] MEDS: ASPIRIN 81 MG TABLET EC PO SCH (05:47)
[2020-04-10 09:54] VITALS: BP 159/89
[2020-04-10] MEDS: TAMSULOSIN 0.4 MG CAP.ER.24H PO SCH (09:57)
[2020-04-10] MEDS: SODIUM CHLORIDE 0.9% 1,000 ML IV SCH (09:57)
[2020-04-10] MEDS: ALLOPURINOL 300 MG TABLET PO SCH (09:57)
[2020-04-10] MEDS: LEVETIRACETAM 500 MG TABLET PO SCH ×2 (09:57→20:21)
[2020-04-10] MEDS: TOLTERODINE 2MG TABLET PO SCH (09:57)
[2020-04-10] MEDS: CALCIUM/VITAMIN D3 250-125 TABLET PO SCH ×2 (09:58→20:22)
[2020-04-10] MEDS: AMIODARONE 200 MG TABLET PO SCH ×2 (09:58→20:22)
[2020-04-10 13:22] VITALS: BP 137/72
[2020-04-10 13:47] VITALS: BP 111/67
[2020-04-10] MEDS: RIVAROXABAN 15 MG TABLET PO SCH (17:14)
[2020-04-10] MEDS: CARVEDILOL 3.125 MG TABLET PO SCH (17:14)
[2020-04-10 17:15] VITALS: BP 118/77
[2020-04-10] MEDS: ATORVASTATIN 40 MG TABLET PO SCH (20:21)
[2020-04-10] MEDS: SENNA/DOCUSATE TABLET PO SCH (20:21)
[2020-04-10] MEDS: CEFTRIAXONE PMX 2GM/50ML 50 ML IV SCH (20:23)
[2020-04-10 20:28] VITALS: BP 121/73
[2020-04-11 02:03] VITALS: BP 131/73
[2020-04-11] MEDS: AMPICILLIN 2 GM in SODIUM CHLORIDE 0.9% 100 ML IV SCH ×4 (04:15→21:49)
[2020-04-11] MEDS: ACETAMINOPHEN 325 MG TABLET PO SCH ×4 (04:16→21:50)
[2020-04-11] MEDS: CARVEDILOL 3.125 MG TABLET PO SCH ×2 (05:34→17:26)
[2020-04-11] MEDS: LEVOTHYROXINE 75 MCG TABLET PO SCH (05:34)
[2020-04-11] MEDS: ASPIRIN 81 MG TABLET EC PO SCH (05:34)
[2020-04-11] MEDS: SODIUM CHLORIDE 0.9% 1,000 ML IV SCH ×2 (05:35→21:49)
[2020-04-11 08:01] VITALS: BP 161/77
[2020-04-11] MEDS: TAMSULOSIN 0.4 MG CAP.ER.24H PO SCH (09:25)
[2020-04-11] MEDS: ALLOPURINOL 300 MG TABLET PO SCH (09:26)
[2020-04-11] MEDS: AMIODARONE 200 MG TABLET PO SCH ×2 (09:26→20:16)
[2020-04-11] MEDS: TOLTERODINE 2MG TABLET PO SCH (09:27)
[2020-04-11] MEDS: CALCIUM/VITAMIN D3 250-125 TABLET PO SCH ×2 (09:27→20:16)
[2020-04-11] MEDS: LEVETIRACETAM 500 MG TABLET PO SCH ×2 (09:27→20:16)
[2020-04-11 12:47] VITALS: BP 128/74
[2020-04-11 15:53] VITALS: BP 144/81
[2020-04-11] MEDS: RIVAROXABAN 15 MG TABLET PO SCH (17:26)
[2020-04-11] MEDS: CEFTRIAXONE PMX 2GM/50ML 50 ML IV SCH (20:14)
[2020-04-11] MEDS: ATORVASTATIN 40 MG TABLET PO SCH (20:16)
[2020-04-11] MEDS: SENNA/DOCUSATE TABLET PO SCH (20:16)
[2020-04-11 20:17] VITALS: BP 134/76
[2020-04-12 01:32] VITALS: BP 139/74
[2020-04-12] MEDS: AMPICILLIN 2 GM in SODIUM CHLORIDE 0.9% 100 ML IV SCH ×4 (04:36→23:17)
[2020-04-12] MEDS: ACETAMINOPHEN 325 MG TABLET PO SCH ×4 (04:43→23:17)
[2020-04-12 05:51] LABS: ANION GAP 9 mmol/L (5-15); CHLORIDE 115 mmol/L (98-107)
[2020-04-12 05:52] LABS: CREATININE 1.43 mg/dL (0.7-1.3)
[2020-04-12] MEDS: LEVOTHYROXINE 75 MCG TABLET PO SCH (06:00)
[2020-04-12] MEDS: CARVEDILOL 3.125 MG TABLET PO SCH ×2 (06:09→17:53)
[2020-04-12] MEDS: ASPIRIN 81 MG TABLET EC PO SCH (06:09)
[2020-04-12 09:03] VITALS: BP 174/83
[2020-04-12] MEDS: AMIODARONE 200 MG TABLET PO SCH ×2 (09:58→21:54)
[2020-04-12] MEDS: TOLTERODINE 2MG TABLET PO SCH (09:58)
[2020-04-12] MEDS: TAMSULOSIN 0.4 MG CAP.ER.24H PO SCH (09:58)
[2020-04-12] MEDS: CALCIUM/VITAMIN D3 250-125 TABLET PO SCH ×2 (09:59→21:54)
[2020-04-12] MEDS: ALLOPURINOL 300 MG TABLET PO SCH (09:59)
[2020-04-12] MEDS: LEVETIRACETAM 500 MG TABLET PO SCH ×2 (09:59→21:54)
[2020-04-12] MEDS ORDERED: SODIUM CHLORIDE INHALATION 7%, 4 ML NPPB ONE (11:00)
[2020-04-12] MEDS: SODIUM CHLORIDE 0.9% 1,000 ML IV SCH (12:28)
[2020-04-12 12:34] VITALS: BP 112/71
[2020-04-12 16:56] VITALS: BP 111/69
[2020-04-12] MEDS: RIVAROXABAN 15 MG TABLET PO SCH (16:56)
[2020-04-12 20:13] VITALS: BP 104/66
[2020-04-12] MEDS: CEFTRIAXONE PMX 2GM/50ML 50 ML IV SCH (21:51)
[2020-04-12] MEDS: ATORVASTATIN 80 MG TABLET PO SCH (21:54)
[2020-04-12] MEDS: SENNA/DOCUSATE TABLET PO SCH (21:54)
[2020-04-13 01:01] VITALS: BP 138/71
[2020-04-13] MEDS: AMPICILLIN 2 GM in SODIUM CHLORIDE 0.9% 100 ML IV SCH ×4 (05:37→23:11)
[2020-04-13] MEDS: ASPIRIN 81 MG TABLET EC PO SCH (05:40)
[2020-04-13] MEDS: ACETAMINOPHEN 325 MG TABLET PO SCH ×4 (05:41→23:10)
[2020-04-13] MEDS: LEVOTHYROXINE 75 MCG TABLET PO SCH (05:41)
[2020-04-13] MEDS: CARVEDILOL 3.125 MG TABLET PO SCH ×2 (05:41→17:01)
[2020-04-13 05:45] VITALS: BP 160/78
[2020-04-13] MEDS: SODIUM CHLORIDE 0.9% 1,000 ML IV SCH ×2 (05:48→23:11)
[2020-04-13 09:08] VITALS: BP 170/79
[2020-04-13] MEDS: ALLOPURINOL 300 MG TABLET PO SCH (09:17)
[2020-04-13] MEDS: AMIODARONE 200 MG TABLET PO SCH ×2 (09:17→20:36)
[2020-04-13] MEDS: TOLTERODINE 2MG TABLET PO SCH (09:18)
[2020-04-13] MEDS: LEVETIRACETAM 500 MG TABLET PO SCH ×2 (09:18→20:35)
[2020-04-13] MEDS: TAMSULOSIN 0.4 MG CAP.ER.24H PO SCH (09:18)
[2020-04-13] MEDS: CALCIUM/VITAMIN D3 250-125 TABLET PO SCH ×2 (09:18→20:35)
[2020-04-13 14:36] VITALS: BP 124/76
[2020-04-13] MEDS: RIVAROXABAN 15 MG TABLET PO SCH (17:01)
[2020-04-13 18:49] VITALS: BP 116/67
[2020-04-13] MEDS: SENNA/DOCUSATE TABLET PO SCH (20:35)
[2020-04-13] MEDS: CEFTRIAXONE PMX 2GM/50ML 50 ML IV SCH (20:35)
[2020-04-13] MEDS: ATORVASTATIN 80 MG TABLET PO SCH (20:36)
[2020-04-14 00:18] VITALS: BP 137/75
[2020-04-14] MEDS: AMPICILLIN 2 GM in SODIUM CHLORIDE 0.9% 100 ML IV SCH ×4 (05:04→22:49)
[2020-04-14] MEDS: ACETAMINOPHEN 325 MG TABLET PO SCH ×4 (05:05→23:00)
[2020-04-14 05:09] VITALS: BP 147/82
[2020-04-14] MEDS: ASPIRIN 81 MG TABLET EC PO SCH (05:13)
[2020-04-14] MEDS: CARVEDILOL 3.125 MG TABLET PO SCH ×2 (05:13→16:57)
[2020-04-14] MEDS: LEVOTHYROXINE 75 MCG TABLET PO SCH (05:14)
[2020-04-14 06:34] VITALS: BP 152/79
[2020-04-14] MEDS: ALLOPURINOL 300 MG TABLET PO SCH (08:00)
[2020-04-14] MEDS: AMIODARONE 200 MG TABLET PO SCH ×2 (08:00→21:01)
[2020-04-14] MEDS: LEVETIRACETAM 500 MG TABLET PO SCH ×2 (08:01→21:01)
[2020-04-14] MEDS: CALCIUM/VITAMIN D3 250-125 TABLET PO SCH ×2 (08:01→21:02)
[2020-04-14] MEDS: TOLTERODINE 2MG TABLET PO SCH (08:01)
[2020-04-14] MEDS: PYRIDOXINE (Vitamin B6) 50MG TAB PO SCH (08:01)
[2020-04-14] MEDS: ISONIAZID 300 MG TABLET PO SCH (08:01)
[2020-04-14] MEDS: TAMSULOSIN 0.4 MG CAP.ER.24H PO SCH (08:01)
[2020-04-14 12:39] VITALS: BP 128/74
[2020-04-14] MEDS: SODIUM CHLORIDE 0.9% 1,000 ML IV SCH (16:57)
[2020-04-14] MEDS: RIVAROXABAN 15 MG TABLET PO SCH (16:57)
[2020-04-14 20:55] VITALS: BP 111/73
[2020-04-14] MEDS: CEFTRIAXONE PMX 2GM/50ML 50 ML IV SCH (21:01)
[2020-04-14] MEDS: ATORVASTATIN 80 MG TABLET PO SCH (21:01)
[2020-04-14] MEDS: SENNA/DOCUSATE TABLET PO SCH (21:02)
[2020-04-15 01:02] VITALS: BP 114/64
[2020-04-15] MEDS: AMPICILLIN 2 GM in SODIUM CHLORIDE 0.9% 100 ML IV SCH ×4 (04:47→23:34)
[2020-04-15] MEDS: ACETAMINOPHEN 325 MG TABLET PO SCH ×4 (04:49→23:34)
[2020-04-15] MEDS: MAGNESIUM HYDROXIDE 8%, 30ML UDC PO PRN (05:11)
[2020-04-15] MEDS: ASPIRIN 81 MG TABLET EC PO SCH (05:11)
[2020-04-15] MEDS: LEVOTHYROXINE 75 MCG TABLET PO SCH (05:11)
[2020-04-15] MEDS: CARVEDILOL 3.125 MG TABLET PO SCH ×2 (05:13→17:12)
[2020-04-15 06:03] LABS: BASOPHILS # (AUTO) 0.02 x10^3/uL (0-0.1); BASOPHILS % (AUTO) 0 % (0-1); EOSINOPHILS # (AUTO) 0.13 x10^3/uL (0-0.4); EOSINOPHILS % (AUTO) 2 % (1-7); LYMPHOCYTES # (AUTO) 1.14 x10^3/uL (1-3.4); LYMPHOCYTES % (AUTO) 18 % (22-44); MD NO; MEAN CORPUSCULAR HEMOGLOBIN 31.2 pg (27.5-34.5); MEAN PLATELET VOLUME 10.4 fL (7.4-10.4); MONOCYTES # (AUTO) 0.31 x10^3/uL (0.2-0.8); MONOCYTES % (AUTO) 5 % (2-9); NEUTROPHILS # (AUTO) 4.89 x10^3/uL (1.8-6.8); NEUTROPHILS % (AUTO) 76 % (42-75); PLATELET COUNT 247 x10^3/uL (130-400); RED BLOOD COUNT 3.09 x10^6/uL (4.38-5.82); RED CELL DISTRIBUTION WIDTH 17.5 % (9.4-14.8)
[2020-04-15 06:06] LABS: HCT (SEDRATE) 29.5 % (39.2-51.8)
[2020-04-15 08:25] VITALS: BP 159/81
[2020-04-15] MEDS: TOLTERODINE 2MG TABLET PO SCH (09:07)
[2020-04-15] MEDS: PYRIDOXINE (Vitamin B6) 50MG TAB PO SCH (09:07)
[2020-04-15] MEDS: ISONIAZID 300 MG TABLET PO SCH (09:07)
[2020-04-15] MEDS: SODIUM CHLORIDE 0.9% 1,000 ML IV SCH (09:07)
[2020-04-15] MEDS: AMIODARONE 200 MG TABLET PO SCH ×2 (09:08→20:55)
[2020-04-15] MEDS: TAMSULOSIN 0.4 MG CAP.ER.24H PO SCH (09:08)
[2020-04-15] MEDS: CALCIUM/VITAMIN D3 250-125 TABLET PO SCH ×2 (09:08→20:55)
[2020-04-15] MEDS: LEVETIRACETAM 500 MG TABLET PO SCH ×2 (09:08→20:55)
[2020-04-15] MEDS: ALLOPURINOL 300 MG TABLET PO SCH (09:08)
[2020-04-15 12:39] VITALS: BP 131/73
[2020-04-15 17:08] VITALS: BP 131/76
[2020-04-15] MEDS: RIVAROXABAN 15 MG TABLET PO SCH (17:11)
[2020-04-15] MEDS: CEFTRIAXONE PMX 2GM/50ML 50 ML IV SCH (20:54)
[2020-04-15] MEDS: SENNA/DOCUSATE TABLET PO SCH (20:54)
[2020-04-15 20:55] VITALS: BP 104/62
[2020-04-15] MEDS: ATORVASTATIN 80 MG TABLET PO SCH (20:55)
[2020-04-16 03:30] VITALS: BP 110/63
[2020-04-16] MEDS: ASPIRIN 81 MG TABLET EC PO SCH (05:40)
[2020-04-16] MEDS: ACETAMINOPHEN 325 MG TABLET PO SCH ×4 (05:40→23:26)
[2020-04-16] MEDS: LEVOTHYROXINE 75 MCG TABLET PO SCH (05:41)
[2020-04-16] MEDS: AMPICILLIN 2 GM in SODIUM CHLORIDE 0.9% 100 ML IV SCH ×4 (05:41→23:26)
[2020-04-16] MEDS: CARVEDILOL 3.125 MG TABLET PO SCH ×2 (05:41→17:32)
[2020-04-16 06:38] LABS: ANION GAP 5 mmol/L (5-15); CHLORIDE 114 mmol/L (98-107); CREATININE 1.76 mg/dL (0.7-1.3)
[2020-04-16 08:36] VITALS: BP 161/76
[2020-04-16] MEDS: LEVETIRACETAM 500 MG TABLET PO SCH ×2 (10:01→21:04)
[2020-04-16] MEDS: SODIUM CHLORIDE 0.9% 1,000 ML IV SCH (10:01)
[2020-04-16] MEDS: TOLTERODINE 2MG TABLET PO SCH (10:02)
[2020-04-16] MEDS: PYRIDOXINE (Vitamin B6) 50MG TAB PO SCH (10:02)
[2020-04-16] MEDS: ISONIAZID 300 MG TABLET PO SCH (10:02)
[2020-04-16] MEDS: CALCIUM/VITAMIN D3 250-125 TABLET PO SCH ×2 (10:02→21:04)
[2020-04-16] MEDS: TAMSULOSIN 0.4 MG CAP.ER.24H PO SCH (10:02)
[2020-04-16] MEDS: ALLOPURINOL 300 MG TABLET PO SCH (10:03)
[2020-04-16] MEDS: AMIODARONE 200 MG TABLET PO SCH ×2 (10:03→21:04)
[2020-04-16] MEDS: MAGNESIUM HYDROXIDE 8%, 30ML UDC PO PRN (10:27)
[2020-04-16 13:00] VITALS: BP 112/68
[2020-04-16 17:30] VITALS: BP 109/66
[2020-04-16] MEDS: RIVAROXABAN 15 MG TABLET PO SCH (17:32)
[2020-04-16 20:58] VITALS: BP 112/68
[2020-04-16] MEDS: CEFTRIAXONE PMX 2GM/50ML 50 ML IV SCH (21:03)
[2020-04-16] MEDS: ATORVASTATIN 80 MG TABLET PO SCH (21:04)
[2020-04-16] MEDS: SENNA/DOCUSATE TABLET PO SCH (21:04)
[2020-04-17 02:22] VITALS: BP 112/66
[2020-04-17] MEDS: AMPICILLIN 2 GM in SODIUM CHLORIDE 0.9% 100 ML IV SCH ×4 (05:04→23:21)
[2020-04-17] MEDS: SODIUM CHLORIDE 0.9% 1,000 ML IV SCH (05:05)
[2020-04-17] MEDS: ACETAMINOPHEN 325 MG TABLET PO SCH ×4 (05:05→23:21)
[2020-04-17] MEDS: LEVOTHYROXINE 75 MCG TABLET PO SCH (05:05)
[2020-04-17] MEDS: ASPIRIN 81 MG TABLET EC PO SCH (05:05)
[2020-04-17] MEDS: CARVEDILOL 3.125 MG TABLET PO SCH ×2 (05:05→17:20)
[2020-04-17 08:15] VITALS: BP 147/85
[2020-04-17] MEDS: LEVETIRACETAM 500 MG TABLET PO SCH ×2 (08:18→21:15)
[2020-04-17] MEDS: PYRIDOXINE (Vitamin B6) 50MG TAB PO SCH (08:19)
[2020-04-17] MEDS: AMIODARONE 200 MG TABLET PO SCH ×2 (08:19→21:15)
[2020-04-17] MEDS: TOLTERODINE 2MG TABLET PO SCH (08:19)
[2020-04-17] MEDS: CALCIUM/VITAMIN D3 250-125 TABLET PO SCH ×2 (08:19→21:15)
[2020-04-17] MEDS: TAMSULOSIN 0.4 MG CAP.ER.24H PO SCH (08:19)
[2020-04-17] MEDS: ISONIAZID 300 MG TABLET PO SCH (08:19)
[2020-04-17] MEDS: ALLOPURINOL 300 MG TABLET PO SCH (08:20)
[2020-04-17 12:12] VITALS: BP 100/61
[2020-04-17] MEDS: BISACODYL 10 MG SUPP PR PRN (14:13)
[2020-04-17 15:50] VITALS: BP 119/73
[2020-04-17 17:18] VITALS: BP 120/67
[2020-04-17] MEDS: RIVAROXABAN 15 MG TABLET PO SCH (17:20)
[2020-04-17 20:32] VITALS: BP 110/64
[2020-04-17] MEDS: CEFTRIAXONE PMX 2GM/50ML 50 ML IV SCH (21:13)
[2020-04-17] MEDS: ATORVASTATIN 80 MG TABLET PO SCH (21:15)
[2020-04-17] MEDS: SENNA/DOCUSATE TABLET PO SCH (21:15)
[2020-04-18 01:58] VITALS: BP 108/63
[2020-04-18] MEDS: ACETAMINOPHEN 325 MG TABLET PO SCH ×4 (05:46→22:58)
[2020-04-18] MEDS: LEVOTHYROXINE 75 MCG TABLET PO SCH (05:46)
[2020-04-18] MEDS: ASPIRIN 81 MG TABLET EC PO SCH (05:46)
[2020-04-18] MEDS: AMPICILLIN 2 GM in SODIUM CHLORIDE 0.9% 100 ML IV SCH ×4 (05:46→22:58)
[2020-04-18] MEDS: CARVEDILOL 3.125 MG TABLET PO SCH ×2 (05:47→17:47)
[2020-04-18 05:49] VITALS: BP 134/77
[2020-04-18 06:35] VITALS: BP 139/76
[2020-04-18 07:02] LABS: HCT (SEDRATE) 25.9 % (39.2-51.8)
[2020-04-18 07:06] LABS: BASOPHILS # (AUTO) 0.02 x10^3/uL (0-0.1); BASOPHILS % (AUTO) 1 % (0-1); EOSINOPHILS # (AUTO) 0.12 x10^3/uL (0-0.4); EOSINOPHILS % (AUTO) 2 % (1-7); LYMPHOCYTES # (AUTO) 0.97 x10^3/uL (1-3.4); LYMPHOCYTES % (AUTO) 20 % (22-44); MD NO; MEAN CORPUSCULAR HEMOGLOBIN 30.9 pg (27.5-34.5); MEAN CORPUSCULAR HGB CONC 32.6 g/dL (33.2-36.2); MONOCYTES # (AUTO) 0.34 x10^3/uL (0.2-0.8); MONOCYTES % (AUTO) 7 % (2-9); NEUTROPHILS # (AUTO) 3.42 x10^3/uL (1.8-6.8); NEUTROPHILS % (AUTO) 70 % (42-75); PLATELET COUNT 207 x10^3/uL (130-400); RED BLOOD COUNT 2.73 x10^6/uL (4.38-5.82); RED CELL DISTRIBUTION WIDTH 18.3 % (9.4-14.8)
[2020-04-18 07:15] LABS: ANION GAP 7 mmol/L (5-15); CALCIUM 7.7 mg/dL (8.5-10.1); CHLORIDE 115 mmol/L (98-107)
[2020-04-18 07:20] LABS: ALANINE AMINOTRANSFERASE 13 U/L (12-78); ALKALINE PHOSPHATASE 37 U/L (45-117); BILIRUBIN,TOTAL 0.2 mg/dL (0.2-1.0); CREATININE 1.84 mg/dL (0.7-1.3); TOTAL PROTEIN 4.7 g/dL (6.4-8.2)
[2020-04-18] MEDS: TOLTERODINE 2MG TABLET PO SCH (08:41)
[2020-04-18] MEDS: ISONIAZID 300 MG TABLET PO SCH (08:41)
[2020-04-18] MEDS: PYRIDOXINE (Vitamin B6) 50MG TAB PO SCH (08:42)
[2020-04-18] MEDS: ALLOPURINOL 300 MG TABLET PO SCH (08:42)
[2020-04-18] MEDS: LEVETIRACETAM 500 MG TABLET PO SCH ×2 (08:42→20:24)
[2020-04-18] MEDS: CALCIUM/VITAMIN D3 250-125 TABLET PO SCH ×2 (08:42→20:24)
[2020-04-18] MEDS: TAMSULOSIN 0.4 MG CAP.ER.24H PO SCH (08:42)
[2020-04-18] MEDS: AMIODARONE 200 MG TABLET PO SCH ×2 (08:42→20:24)
[2020-04-18 12:36] VITALS: BP 108/64
[2020-04-18] MEDS: RIVAROXABAN 15 MG TABLET PO SCH (16:59)
[2020-04-18 19:18] VITALS: BP 100/53
[2020-04-18] MEDS: CEFTRIAXONE PMX 2GM/50ML 50 ML IV SCH (20:23)
[2020-04-18] MEDS: SENNA/DOCUSATE TABLET PO SCH (20:24)
[2020-04-18] MEDS: ATORVASTATIN 80 MG TABLET PO SCH (20:24)
[2020-04-18 22:19] VITALS: BP 134/74
[2020-04-19] VITALS (7 sets, daily range): BP systolic 87–131; BP diastolic 49–78
[2020-04-19 04:22] LABS: ANION GAP 4 mmol/L (5-15); CALCIUM 7.8 mg/dL (8.5-10.1); CHLORIDE 116 mmol/L (98-107); CREATININE 1.91 mg/dL (0.7-1.3)
[2020-04-19] MEDS: CARVEDILOL 3.125 MG TABLET PO SCH ×2 (05:15→17:23)
[2020-04-19] MEDS: AMPICILLIN 2 GM in SODIUM CHLORIDE 0.9% 100 ML IV SCH ×4 (05:15→23:38)
[2020-04-19] MEDS: ACETAMINOPHEN 325 MG TABLET PO SCH ×4 (05:15→23:00)
[2020-04-19] MEDS: LEVOTHYROXINE 75 MCG TABLET PO SCH (05:15)
[2020-04-19] MEDS: ASPIRIN 81 MG TABLET EC PO SCH (05:15)
[2020-04-19] MEDS: CALCIUM/VITAMIN D3 250-125 TABLET PO SCH ×2 (09:00→21:11)
[2020-04-19] MEDS: ALLOPURINOL 300 MG TABLET PO SCH (09:00)
[2020-04-19] MEDS: LEVETIRACETAM 500 MG TABLET PO SCH ×2 (09:00→21:11)
[2020-04-19] MEDS: PYRIDOXINE (Vitamin B6) 50MG TAB PO SCH (09:00)
[2020-04-19] MEDS: TAMSULOSIN 0.4 MG CAP.ER.24H PO SCH (09:00)
[2020-04-19] MEDS: ISONIAZID 300 MG TABLET PO SCH (09:00)
[2020-04-19] MEDS: TOLTERODINE 2MG TABLET PO SCH (09:40)
[2020-04-19] MEDS: AMIODARONE 200 MG TABLET PO SCH ×2 (09:40→22:31)
[2020-04-19] MEDS: RIVAROXABAN 15 MG TABLET PO SCH (16:59)
[2020-04-19] MEDS: CEFTRIAXONE PMX 2GM/50ML 50 ML IV SCH (21:10)
[2020-04-19] MEDS: ATORVASTATIN 80 MG TABLET PO SCH (21:11)
[2020-04-19] MEDS: SENNA/DOCUSATE TABLET PO SCH (21:11)
[2020-04-19] MEDS ORDERED: SODIUM CHLORIDE 0.9%, 250ML IVBOLUS ONE (22:00)
[2020-04-20] VITALS (9 sets, daily range): BP systolic 76–152; BP diastolic 43–81
[2020-04-20] MEDS: ACETAMINOPHEN 325 MG TABLET PO SCH ×4 (05:00→23:00)
[2020-04-20] MEDS: ASPIRIN 81 MG TABLET EC PO SCH (05:16)
[2020-04-20] MEDS: LEVOTHYROXINE 75 MCG TABLET PO SCH (05:16)
[2020-04-20] MEDS: CARVEDILOL 3.125 MG TABLET PO SCH ×2 (05:16→18:00)
[2020-04-20] MEDS: AMPICILLIN 2 GM in SODIUM CHLORIDE 0.9% 100 ML IV SCH ×4 (05:16→23:09)
[2020-04-20 05:58] LABS: BASOPHILS # (AUTO) 0.02 x10^3/uL (0-0.1); BASOPHILS % (AUTO) 1 % (0-1); EOSINOPHILS # (AUTO) 0.14 x10^3/uL (0-0.4); EOSINOPHILS % (AUTO) 3 % (1-7); LYMPHOCYTES # (AUTO) 0.87 x10^3/uL (1-3.4); LYMPHOCYTES % (AUTO) 17 % (22-44); MD NO; MEAN CORPUSCULAR HEMOGLOBIN 31.7 pg (27.5-34.5); MEAN CORPUSCULAR HGB CONC 33.2 g/dL (33.2-36.2); MEAN PLATELET VOLUME 11.5 fL (7.4-10.4); MONOCYTES # (AUTO) 0.34 x10^3/uL (0.2-0.8); MONOCYTES % (AUTO) 7 % (2-9); NEUTROPHILS # (AUTO) 3.85 x10^3/uL (1.8-6.8); NEUTROPHILS % (AUTO) 74 % (42-75); PLATELET COUNT 188 x10^3/uL (130-400); RED BLOOD COUNT 2.51 x10^6/uL (4.38-5.82); RED CELL DISTRIBUTION WIDTH 18.4 % (9.4-14.8)
[2020-04-20 06:07] LABS: CHLORIDE 113 mmol/L (98-107)
[2020-04-20 06:19] LABS: ANION GAP 6 mmol/L (5-15); CREATININE 1.91 mg/dL (0.7-1.3)
[2020-04-20] MEDS ORDERED: SODIUM CHLORIDE 0.9% 1,000 ML IV SCH (08:00)
[2020-04-20] MEDS ORDERED: PROPOFOL 10 MG/ML, 20ML ONE (08:14)
[2020-04-20] MEDS: AMIODARONE 200 MG TABLET PO SCH ×2 (10:48→20:05)
[2020-04-20] MEDS: PYRIDOXINE (Vitamin B6) 50MG TAB PO SCH (10:48)
[2020-04-20] MEDS: ISONIAZID 300 MG TABLET PO SCH (10:48)
[2020-04-20] MEDS: CALCIUM/VITAMIN D3 250-125 TABLET PO SCH ×2 (10:48→20:04)
[2020-04-20] MEDS: TOLTERODINE 2MG TABLET PO SCH (10:48)
[2020-04-20] MEDS: TAMSULOSIN 0.4 MG CAP.ER.24H PO SCH (10:48)
[2020-04-20] MEDS: LEVETIRACETAM 500 MG TABLET PO SCH ×2 (10:49→20:04)
[2020-04-20] MEDS: ALLOPURINOL 300 MG TABLET PO SCH (10:49)
[2020-04-20] MEDS: RIVAROXABAN 15 MG TABLET PO SCH (17:12)
[2020-04-20] MEDS: ATORVASTATIN 80 MG TABLET PO SCH (20:04)
[2020-04-20] MEDS: SENNA/DOCUSATE TABLET PO SCH (20:04)
[2020-04-20] MEDS: CEFTRIAXONE PMX 2GM/50ML 50 ML IV SCH (20:50)
[2020-04-21] VITALS (7 sets, daily range): BP systolic 96–136; BP diastolic 60–80
[2020-04-21] MEDS: ACETAMINOPHEN 325 MG TABLET PO SCH ×4 (05:00→20:26)
[2020-04-21] MEDS: AMPICILLIN 2 GM in SODIUM CHLORIDE 0.9% 100 ML IV SCH (05:19)
[2020-04-21] MEDS: ASPIRIN 81 MG TABLET EC PO SCH (05:19)
[2020-04-21] MEDS: LEVOTHYROXINE 75 MCG TABLET PO SCH (05:20)
[2020-04-21] MEDS: CARVEDILOL 3.125 MG TABLET PO SCH ×2 (05:20→18:14)
[2020-04-21] MEDS: DAPTOMYCIN 700 MG in SODIUM CHLORIDE 0.9% 100 ML IVPB SCH (09:24)
[2020-04-21] MEDS: AMIODARONE 200 MG TABLET PO SCH ×2 (09:26→20:27)
[2020-04-21] MEDS: CALCIUM/VITAMIN D3 250-125 TABLET PO SCH ×2 (09:26→20:27)
[2020-04-21] MEDS: TAMSULOSIN 0.4 MG CAP.ER.24H PO SCH (09:26)
[2020-04-21] MEDS: TOLTERODINE 2MG TABLET PO SCH (09:27)
[2020-04-21] MEDS: PYRIDOXINE (Vitamin B6) 50MG TAB PO SCH (09:27)
[2020-04-21] MEDS: LEVETIRACETAM 500 MG TABLET PO SCH ×2 (09:27→20:26)
[2020-04-21] MEDS: ISONIAZID 300 MG TABLET PO SCH (09:27)
[2020-04-21] MEDS: ALLOPURINOL 300 MG TABLET PO SCH (09:27)
[2020-04-21] MEDS: RIVAROXABAN 15 MG TABLET PO SCH (17:06)
[2020-04-21] MEDS: SENNA/DOCUSATE TABLET PO SCH (20:25)
[2020-04-22] VITALS (12 sets, daily range): BP systolic 98–152; BP diastolic 53–76
[2020-04-22] MEDS: ACETAMINOPHEN 325 MG TABLET PO SCH ×4 (02:00→22:27)
[2020-04-22 02:58] LABS: MEAN CORPUSCULAR HEMOGLOBIN 31.2 pg (27.5-34.5); MEAN CORPUSCULAR HGB CONC 32.4 g/dL (33.2-36.2); MEAN PLATELET VOLUME 10.9 fL (7.4-10.4); PLATELET COUNT 179 x10^3/uL (130-400); RED BLOOD COUNT 2.33 x10^6/uL (4.38-5.82); RED CELL DISTRIBUTION WIDTH 19.4 % (9.4-14.8)
[2020-04-22 03:01] LABS: ANION GAP 7 mmol/L (5-15); CALCIUM 8.1 mg/dL (8.5-10.1); CHLORIDE 111 mmol/L (98-107); CREATININE 1.94 mg/dL (0.7-1.3)
[2020-04-22 03:14] LABS: BASOPHILS # (AUTO) 0.02 x10^3/uL (0-0.1); BASOPHILS % (AUTO) 0 % (0-1); EOSINOPHILS # (AUTO) 0.14 x10^3/uL (0-0.4); EOSINOPHILS % (AUTO) 3 % (1-7); LYMPHOCYTES # (AUTO) 1.05 x10^3/uL (1-3.4); LYMPHOCYTES % (AUTO) 22 % (22-44); MD SCAN; MONOCYTES # (AUTO) 0.44 x10^3/uL (0.2-0.8); MONOCYTES % (AUTO) 9 % (2-9); NEUTROPHILS # (AUTO) 3.18 x10^3/uL (1.8-6.8); NEUTROPHILS % (AUTO) 66 % (42-75)
[2020-04-22] MEDS: ASPIRIN 81 MG TABLET EC PO SCH (05:24)
[2020-04-22] MEDS: CARVEDILOL 3.125 MG TABLET PO SCH ×2 (05:24→17:50)
[2020-04-22] MEDS: LEVOTHYROXINE 75 MCG TABLET PO SCH (05:24)
[2020-04-22] MEDS ORDERED: DIPHENHYDRAMINE 50 MG/ML, 1ML IVPush ONE (05:30)
[2020-04-22] MEDS: ISONIAZID 300 MG TABLET PO SCH (09:19)
[2020-04-22] MEDS: CALCIUM/VITAMIN D3 250-125 TABLET PO SCH ×2 (09:19→22:28)
[2020-04-22] MEDS: PYRIDOXINE (Vitamin B6) 50MG TAB PO SCH (09:19)
[2020-04-22] MEDS: LEVETIRACETAM 500 MG TABLET PO SCH ×2 (09:20→22:27)
[2020-04-22] MEDS: AMIODARONE 200 MG TABLET PO SCH ×2 (09:20→22:27)
[2020-04-22] MEDS: ALLOPURINOL 300 MG TABLET PO SCH (09:20)
[2020-04-22] MEDS: TAMSULOSIN 0.4 MG CAP.ER.24H PO SCH (09:23)
[2020-04-22] MEDS: TOLTERODINE 2MG TABLET PO SCH (09:23)
[2020-04-22] MEDS: RIVAROXABAN 15 MG TABLET PO SCH (17:53)
[2020-04-22] MEDS: SENNA/DOCUSATE TABLET PO SCH (22:27)
[2020-04-23 02:12] VITALS: BP 116/17
[2020-04-23 03:58] LABS: HCT (SEDRATE) 26.9 % (39.2-51.8)
[2020-04-23 04:00] LABS: BASOPHILS # (AUTO) 0.03 x10^3/uL (0-0.1); BASOPHILS % (AUTO) 1 % (0-1); EOSINOPHILS # (AUTO) 0.15 x10^3/uL (0-0.4); EOSINOPHILS % (AUTO) 3 % (1-7); LYMPHOCYTES # (AUTO) 1.04 x10^3/uL (1-3.4); LYMPHOCYTES % (AUTO) 20 % (22-44); MD NO; MEAN CORPUSCULAR HEMOGLOBIN 31.4 pg (27.5-34.5); MEAN CORPUSCULAR HGB CONC 32.8 g/dL (33.2-36.2); MONOCYTES # (AUTO) 0.35 x10^3/uL (0.2-0.8); MONOCYTES % (AUTO) 7 % (2-9); NEUTROPHILS # (AUTO) 3.68 x10^3/uL (1.8-6.8); NEUTROPHILS % (AUTO) 70 % (42-75); PLATELET COUNT 178 x10^3/uL (130-400); RED BLOOD COUNT 2.77 x10^6/uL (4.38-5.82)
[2020-04-23 04:09] LABS: ANION GAP 4 mmol/L (5-15); CHLORIDE 113 mmol/L (98-107); CREATININE 1.87 mg/dL (0.7-1.3)
[2020-04-23] MEDS: CARVEDILOL 3.125 MG TABLET PO SCH ×2 (05:04→17:36)
[2020-04-23] MEDS: ASPIRIN 81 MG TABLET EC PO SCH (05:04)
[2020-04-23] MEDS: LEVOTHYROXINE 75 MCG TABLET PO SCH (05:05)
[2020-04-23] MEDS: ACETAMINOPHEN 325 MG TABLET PO SCH ×4 (05:05→23:48)
[2020-04-23 07:03] VITALS: BP 126/71
[2020-04-23] MEDS: TAMSULOSIN 0.4 MG CAP.ER.24H PO SCH (08:43)
[2020-04-23] MEDS: CALCIUM/VITAMIN D3 250-125 TABLET PO SCH ×2 (08:43→20:08)
[2020-04-23] MEDS: AMIODARONE 200 MG TABLET PO SCH ×2 (08:44→20:08)
[2020-04-23] MEDS: LEVETIRACETAM 500 MG TABLET PO SCH ×2 (08:44→20:08)
[2020-04-23] MEDS: PYRIDOXINE (Vitamin B6) 50MG TAB PO SCH (08:44)
[2020-04-23] MEDS: ALLOPURINOL 300 MG TABLET PO SCH (08:44)
[2020-04-23] MEDS: ISONIAZID 300 MG TABLET PO SCH (08:44)
[2020-04-23] MEDS: DAPTOMYCIN 700 MG in SODIUM CHLORIDE 0.9% 100 ML IVPB SCH (09:50)
[2020-04-23] MEDS: TOLTERODINE 2MG TABLET PO SCH (12:28)
[2020-04-23 14:56] VITALS: BP 127/82
[2020-04-23] MEDS ORDERED: DILTIAZEM 5 MG/ML, 5ML IVPush ONE (16:30)
[2020-04-23 17:33] VITALS: BP 127/67
[2020-04-23] MEDS: RIVAROXABAN 15 MG TABLET PO SCH (17:37)
[2020-04-23] MEDS: MAGNESIUM HYDROXIDE 8%, 30ML UDC PO PRN (17:43)
[2020-04-23 19:45] VITALS: BP 134/75
[2020-04-23] MEDS: SENNA/DOCUSATE TABLET PO SCH (20:08)
[2020-04-23] MEDS: BISACODYL 10 MG SUPP PR PRN (22:14)
[2020-04-24 00:44] VITALS: BP 123/68
[2020-04-24 05:42] VITALS: BP 109/64
[2020-04-24] MEDS: LEVOTHYROXINE 75 MCG TABLET PO SCH (05:43)
[2020-04-24] MEDS: CARVEDILOL 3.125 MG TABLET PO SCH ×2 (05:43→18:53)
[2020-04-24] MEDS: ASPIRIN 81 MG TABLET EC PO SCH (05:43)
[2020-04-24] MEDS: ACETAMINOPHEN 325 MG TABLET PO SCH (05:44)
[2020-04-24 07:08] LABS: ANION GAP 7 mmol/L (5-15); CALCIUM 8.5 mg/dL (8.5-10.1); CHLORIDE 109 mmol/L (98-107)
[2020-04-24 07:09] LABS: CREATININE 1.65 mg/dL (0.7-1.3)
[2020-04-24 07:14] LABS: BASOPHILS # (AUTO) 0.02 x10^3/uL (0-0.1); BASOPHILS % (AUTO) 0 % (0-1); EOSINOPHILS # (AUTO) 0.16 x10^3/uL (0-0.4); EOSINOPHILS % (AUTO) 2 % (1-7); LYMPHOCYTES # (AUTO) 1.01 x10^3/uL (1-3.4); LYMPHOCYTES % (AUTO) 14 % (22-44); MD NO; MEAN CORPUSCULAR HEMOGLOBIN 30.2 pg (27.5-34.5); MEAN CORPUSCULAR HGB CONC 31.5 g/dL (33.2-36.2); MEAN PLATELET VOLUME 10.8 fL (7.4-10.4); MONOCYTES # (AUTO) 0.45 x10^3/uL (0.2-0.8); MONOCYTES % (AUTO) 6 % (2-9); NEUTROPHILS # (AUTO) 5.88 x10^3/uL (1.8-6.8); NEUTROPHILS % (AUTO) 78 % (42-75); PLATELET COUNT 179 x10^3/uL (130-400); RED BLOOD COUNT 2.97 x10^6/uL (4.38-5.82); RED CELL DISTRIBUTION WIDTH 17.8 % (9.4-14.8)
[2020-04-24] MEDS ORDERED: ACETAMINOPHEN 325 MG TABLET PO PRN (08:30)
[2020-04-24] MEDS: ISONIAZID 300 MG TABLET PO SCH (09:05)
[2020-04-24] MEDS: TOLTERODINE 2MG TABLET PO SCH (09:05)
[2020-04-24] MEDS: ALLOPURINOL 300 MG TABLET PO SCH (09:05)
[2020-04-24] MEDS: TAMSULOSIN 0.4 MG CAP.ER.24H PO SCH (09:05)
[2020-04-24] MEDS: PYRIDOXINE (Vitamin B6) 50MG TAB PO SCH (09:05)
[2020-04-24] MEDS: CALCIUM/VITAMIN D3 250-125 TABLET PO SCH ×2 (09:06→21:10)
[2020-04-24] MEDS: AMIODARONE 200 MG TABLET PO SCH ×2 (09:06→21:10)
[2020-04-24] MEDS: LEVETIRACETAM 500 MG TABLET PO SCH ×2 (09:06→21:10)
[2020-04-24 14:14] VITALS: BP 89/46
[2020-04-24 15:14] VITALS: BP 103/61
[2020-04-24] MEDS: RIVAROXABAN 15 MG TABLET PO SCH (18:55)
[2020-04-24 19:00] VITALS: BP 101/61
[2020-04-24] MEDS: SENNA/DOCUSATE TABLET PO SCH (21:11)
[2020-04-25 00:23] VITALS: BP 114/83
[2020-04-25 03:27] LABS: HCT (SEDRATE) 25.7 % (39.2-51.8)
[2020-04-25 03:28] LABS: BASOPHILS # (AUTO) 0.06 x10^3/uL (0-0.1); BASOPHILS % (AUTO) 1 % (0-1); EOSINOPHILS # (AUTO) 0.12 x10^3/uL (0-0.4); EOSINOPHILS % (AUTO) 2 % (1-7); LYMPHOCYTES # (AUTO) 0.91 x10^3/uL (1-3.4); LYMPHOCYTES % (AUTO) 15 % (22-44); MD NO; MEAN CORPUSCULAR HEMOGLOBIN 31.5 pg (27.5-34.5); MEAN PLATELET VOLUME 11.1 fL (7.4-10.4); MONOCYTES % (AUTO) 5 % (2-9); NEUTROPHILS # (AUTO) 4.79 x10^3/uL (1.8-6.8); NEUTROPHILS % (AUTO) 78 % (42-75); PLATELET COUNT 166 x10^3/uL (130-400); RED BLOOD COUNT 2.68 x10^6/uL (4.38-5.82); RED CELL DISTRIBUTION WIDTH 17.8 % (9.4-14.8)
[2020-04-25 03:40] LABS: ALBUMIN 2.2 g/dL (3.4-5.0); ANION GAP 7 mmol/L (5-15); CALCIUM 7.8 mg/dL (8.5-10.1); CHLORIDE 105 mmol/L (98-107)
[2020-04-25 03:47] LABS: ALANINE AMINOTRANSFERASE 9 U/L (12-78); ALKALINE PHOSPHATASE 44 U/L (45-117); BILIRUBIN,TOTAL 0.4 mg/dL (0.2-1.0); CREATINE KINASE, TOTAL 24 U/L (39-308); TOTAL PROTEIN 5.2 g/dL (6.4-8.2)
[2020-04-25] MEDS: CARVEDILOL 3.125 MG TABLET PO SCH ×2 (05:39→17:12)
[2020-04-25] MEDS: ASPIRIN 81 MG TABLET EC PO SCH (05:39)
[2020-04-25] MEDS: LEVOTHYROXINE 75 MCG TABLET PO SCH (05:40)
[2020-04-25 05:42] VITALS: BP 121/70
[2020-04-25 06:58] VITALS: BP 100/59
[2020-04-25] MEDS: AMIODARONE 200 MG TABLET PO SCH ×2 (08:00→20:18)
[2020-04-25] MEDS: ISONIAZID 300 MG TABLET PO SCH (08:00)
[2020-04-25] MEDS: LEVETIRACETAM 500 MG TABLET PO SCH ×2 (08:00→20:18)
[2020-04-25] MEDS: ALLOPURINOL 300 MG TABLET PO SCH (08:00)
[2020-04-25] MEDS: TAMSULOSIN 0.4 MG CAP.ER.24H PO SCH (08:00)
[2020-04-25] MEDS: PYRIDOXINE (Vitamin B6) 50MG TAB PO SCH (08:00)
[2020-04-25] MEDS: CALCIUM/VITAMIN D3 250-125 TABLET PO SCH ×2 (08:00→20:18)
[2020-04-25] MEDS: TOLTERODINE 2MG TABLET PO SCH (08:01)
[2020-04-25] MEDS: CEFTRIAXONE PMX 2GM/50ML 50 ML IV SCH (10:55)
[2020-04-25] MEDS: AMPICILLIN 2 GM in SODIUM CHLORIDE 0.9% 100 ML IV SCH ×3 (13:23→21:33)
[2020-04-25 14:00] VITALS: BP 121/70
[2020-04-25] MEDS: RIVAROXABAN 15 MG TABLET PO SCH (17:12)
[2020-04-25 19:25] VITALS: BP 108/50
[2020-04-25] MEDS: SENNA/DOCUSATE TABLET PO SCH (20:18)
[2020-04-26] MEDS: AMPICILLIN 2 GM in SODIUM CHLORIDE 0.9% 100 ML IV SCH ×4 (03:45→18:33)
[2020-04-26 03:48] VITALS: BP 117/66
[2020-04-26 04:12] LABS: % IRON SATURATION 13 % (20-55); IRON LEVEL 37 mcg/dL (65-175); TOTAL IRON BINDING CAPACITY 278 mcg/dL (250-450)
[2020-04-26] MEDS: LEVOTHYROXINE 75 MCG TABLET PO SCH (05:57)
[2020-04-26] MEDS: CARVEDILOL 3.125 MG TABLET PO SCH ×2 (05:57→16:20)
[2020-04-26] MEDS: ASPIRIN 81 MG TABLET EC PO SCH (05:57)
[2020-04-26 06:37] VITALS: BP 138/86
[2020-04-26 06:42] VITALS: BP 125/65
[2020-04-26] MEDS: AMIODARONE 200 MG TABLET PO SCH ×2 (08:15→21:15)
[2020-04-26] MEDS: PYRIDOXINE (Vitamin B6) 50MG TAB PO SCH (08:15)
[2020-04-26] MEDS: FERROUS SULFATE 325 MG TABLET PO SCH (08:15)
[2020-04-26] MEDS: CALCIUM/VITAMIN D3 250-125 TABLET PO SCH ×2 (08:15→21:14)
[2020-04-26] MEDS: TAMSULOSIN 0.4 MG CAP.ER.24H PO SCH (08:15)
[2020-04-26] MEDS: ALLOPURINOL 300 MG TABLET PO SCH (08:16)
[2020-04-26] MEDS: ISONIAZID 300 MG TABLET PO SCH (08:16)
[2020-04-26] MEDS: TOLTERODINE 2MG TABLET PO SCH (08:16)
[2020-04-26] MEDS: LEVETIRACETAM 500 MG TABLET PO SCH ×2 (08:16→21:14)
[2020-04-26] MEDS: CEFTRIAXONE PMX 2GM/50ML 50 ML IV SCH (10:25)
[2020-04-26 12:38] VITALS: BP 107/64
[2020-04-26] MEDS: MAGNESIUM HYDROXIDE 8%, 30ML UDC PO PRN (12:56)
[2020-04-26] MEDS: COLCHICINE 0.6 MG CAPSULE PO SCH (15:30)
[2020-04-26] MEDS: RIVAROXABAN 15 MG TABLET PO SCH (16:20)
[2020-04-26 19:57] VITALS: BP_SYST 102
[2020-04-26 21:13] VITALS: BP 117/66
[2020-04-26] MEDS: SENNA/DOCUSATE TABLET PO SCH (21:14)
[2020-04-27] VITALS (7 sets, daily range): BP systolic 95–144; BP diastolic 56–70
[2020-04-27] MEDS: AMPICILLIN 2 GM in SODIUM CHLORIDE 0.9% 100 ML IV SCH ×3 (01:47→18:06)
[2020-04-27] MEDS: LEVOTHYROXINE 75 MCG TABLET PO SCH (05:38)
[2020-04-27] MEDS: CARVEDILOL 3.125 MG TABLET PO SCH ×2 (05:39→17:20)
[2020-04-27] MEDS: ASPIRIN 81 MG TABLET EC PO SCH (05:39)
[2020-04-27] MEDS: SENNA/DOCUSATE TABLET PO SCH ×2 (09:33→20:17)
[2020-04-27] MEDS: PYRIDOXINE (Vitamin B6) 50MG TAB PO SCH (09:33)
[2020-04-27] MEDS: LEVETIRACETAM 500 MG TABLET PO SCH ×2 (09:33→20:17)
[2020-04-27] MEDS: ISONIAZID 300 MG TABLET PO SCH (09:33)
[2020-04-27] MEDS: TOLTERODINE 2MG TABLET PO SCH (09:33)
[2020-04-27] MEDS: AMIODARONE 200 MG TABLET PO SCH ×2 (09:34→20:17)
[2020-04-27] MEDS: ALLOPURINOL 300 MG TABLET PO SCH (09:34)
[2020-04-27] MEDS: TAMSULOSIN 0.4 MG CAP.ER.24H PO SCH (09:34)
[2020-04-27] MEDS: COLCHICINE 0.6 MG CAPSULE PO SCH (09:34)
[2020-04-27] MEDS: CALCIUM/VITAMIN D3 250-125 TABLET PO SCH ×2 (09:34→20:17)
[2020-04-27] MEDS: CEFTRIAXONE PMX 2GM/50ML 50 ML IV SCH (10:52)
[2020-04-27] MEDS: RIVAROXABAN 15 MG TABLET PO SCH (17:20)
[2020-04-28] MEDS: AMPICILLIN 2 GM in SODIUM CHLORIDE 0.9% 100 ML IV SCH ×3 (01:44→18:20)
[2020-04-28 03:59] VITALS: BP 121/67
[2020-04-28] MEDS: LEVOTHYROXINE 75 MCG TABLET PO SCH (06:00)
[2020-04-28] MEDS: CARVEDILOL 3.125 MG TABLET PO SCH ×2 (06:10→18:13)
[2020-04-28] MEDS: ASPIRIN 81 MG TABLET EC PO SCH (06:10)
[2020-04-28 07:01] VITALS: BP 126/70
[2020-04-28] MEDS: AMIODARONE 200 MG TABLET PO SCH ×2 (08:25→21:45)
[2020-04-28] MEDS: CALCIUM/VITAMIN D3 250-125 TABLET PO SCH ×2 (08:25→21:45)
[2020-04-28] MEDS: FERROUS SULFATE 325 MG TABLET PO SCH (08:25)
[2020-04-28] MEDS: TOLTERODINE 2MG TABLET PO SCH (08:26)
[2020-04-28] MEDS: COLCHICINE 0.6 MG CAPSULE PO SCH (08:26)
[2020-04-28] MEDS: ISONIAZID 300 MG TABLET PO SCH (08:26)
[2020-04-28] MEDS: TAMSULOSIN 0.4 MG CAP.ER.24H PO SCH (08:26)
[2020-04-28] MEDS: PYRIDOXINE (Vitamin B6) 50MG TAB PO SCH (08:26)
[2020-04-28] MEDS: LEVETIRACETAM 500 MG TABLET PO SCH ×2 (08:26→21:45)
[2020-04-28] MEDS: SENNA/DOCUSATE TABLET PO SCH ×2 (08:27→21:00)
[2020-04-28] MEDS: ALLOPURINOL 300 MG TABLET PO SCH (08:27)
[2020-04-28] MEDS ORDERED: BISACODYL 10 MG SUPP PR SCH (09:00)
[2020-04-28] MEDS: CEFTRIAXONE PMX 2GM/50ML 50 ML IV SCH (10:42)
[2020-04-28 13:17] VITALS: BP 116/68
[2020-04-28 18:06] LABS: OCCULT BLOOD POSITIVE (NEGATIVE)
[2020-04-28] MEDS: RIVAROXABAN 15 MG TABLET PO SCH (18:12)
[2020-04-28 19:15] VITALS: BP 123/69
[2020-04-29 01:40] VITALS: BP 124/54
[2020-04-29] MEDS: AMPICILLIN 2 GM in SODIUM CHLORIDE 0.9% 100 ML IV SCH ×3 (02:06→17:29)
[2020-04-29 03:30] LABS: CREATININE 1.62 mg/dL (0.7-1.3)
[2020-04-29] MEDS ORDERED: CATHFLO-ALTEPLASE 2 MG/2 ML CATHFLUSH ONE (03:30)
[2020-04-29] MEDS: LEVOTHYROXINE 75 MCG TABLET PO SCH (06:09)
[2020-04-29] MEDS: CARVEDILOL 3.125 MG TABLET PO SCH ×2 (06:09→17:29)
[2020-04-29] MEDS: ASPIRIN 81 MG TABLET EC PO SCH (06:09)
[2020-04-29] MEDS ORDERED: BISACODYL 10 MG SUPP PR PRN (08:00)
[2020-04-29 08:14] VITALS: BP 131/65
[2020-04-29] MEDS: COLCHICINE 0.6 MG CAPSULE PO SCH (10:46)
[2020-04-29] MEDS: PYRIDOXINE (Vitamin B6) 50MG TAB PO SCH (10:46)
[2020-04-29] MEDS: CALCIUM/VITAMIN D3 250-125 TABLET PO SCH ×2 (10:46→20:30)
[2020-04-29] MEDS: SENNA/DOCUSATE TABLET PO SCH ×2 (10:46→20:30)
[2020-04-29] MEDS: TAMSULOSIN 0.4 MG CAP.ER.24H PO SCH (10:46)
[2020-04-29] MEDS: TOLTERODINE 2MG TABLET PO SCH (10:46)
[2020-04-29] MEDS: AMIODARONE 200 MG TABLET PO SCH ×2 (10:46→20:30)
[2020-04-29] MEDS: ISONIAZID 300 MG TABLET PO SCH (10:46)
[2020-04-29] MEDS: LEVETIRACETAM 500 MG TABLET PO SCH ×2 (10:46→20:30)
[2020-04-29] MEDS: ALLOPURINOL 300 MG TABLET PO SCH (10:46)
[2020-04-29] MEDS: CEFTRIAXONE PMX 2GM/50ML 50 ML IV SCH (10:52)
[2020-04-29 13:34] VITALS: BP 108/59
[2020-04-29] MEDS: RIVAROXABAN 15 MG TABLET PO SCH (17:29)
[2020-04-29 20:34] VITALS: BP 106/62
[2020-04-30 01:07] VITALS: BP 124/60
[2020-04-30] MEDS: AMPICILLIN 2 GM in SODIUM CHLORIDE 0.9% 100 ML IV SCH ×2 (02:16→10:29)
[2020-04-30] MEDS: CARVEDILOL 3.125 MG TABLET PO SCH (05:57)
[2020-04-30] MEDS: LEVOTHYROXINE 75 MCG TABLET PO SCH (05:57)
[2020-04-30] MEDS: ASPIRIN 81 MG TABLET EC PO SCH (05:57)
[2020-04-30 07:06] VITALS: BP 122/51
[2020-04-30] MEDS: FERROUS SULFATE 325 MG TABLET PO SCH (07:50)
[2020-04-30 07:51] VITALS: BP 117/65
[2020-04-30] MEDS: ALLOPURINOL 300 MG TABLET PO SCH (08:23)
[2020-04-30] MEDS: PYRIDOXINE (Vitamin B6) 50MG TAB PO SCH (08:23)
[2020-04-30] MEDS: CALCIUM/VITAMIN D3 250-125 TABLET PO SCH (08:23)
[2020-04-30] MEDS: LEVETIRACETAM 500 MG TABLET PO SCH (08:23)
[2020-04-30] MEDS: COLCHICINE 0.6 MG CAPSULE PO SCH (08:23)
[2020-04-30] MEDS: SENNA/DOCUSATE TABLET PO SCH (08:24)
[2020-04-30] MEDS: TAMSULOSIN 0.4 MG CAP.ER.24H PO SCH (08:24)
[2020-04-30] MEDS: ISONIAZID 300 MG TABLET PO SCH (08:24)
[2020-04-30] MEDS: TOLTERODINE 2MG TABLET PO SCH (08:24)
[2020-04-30] MEDS: AMIODARONE 200 MG TABLET PO SCH (08:24)
[2020-04-30] MEDS: CEFTRIAXONE PMX 2GM/50ML 50 ML IV SCH (09:57)
[2020-04-30] MEDS ORDERED: FUROSEMIDE 20 MG/2 ML IV ONE (10:30)
[2020-04-30] MEDS ORDERED: ACET325T26 PO (10:47)
[2020-04-30] MEDS ORDERED: CARV3.1212 PO (10:47)
[2020-04-30] MEDS ORDERED: CALC1TAB68 PO (10:47)
[2020-04-30] MEDS ORDERED: BISA10SU4 PR (10:47)
[2020-04-30] MEDS ORDERED: SENN-193 PO (10:47)
[2020-04-30] MEDS ORDERED: ASPI81TA45 PO (10:47)
[2020-04-30] MEDS ORDERED: HYDR-3342 PO ×2 (10:47)
[2020-04-30] MEDS ORDERED: PYRI50TA7 PO (10:47)
[2020-04-30] MEDS ORDERED: FERR-51 PO (10:47)
[2020-04-30] MEDS ORDERED: ISON300T10 PO (11:23)
[2020-04-30 13:30] VITALS: BP 124/56
== END 2020-04-30 16:11 | DRG 871 ==
LOC: ED 17:02 → SUATTDRO 17:50 → EDIP 18:16 → 4NW 19:56 → 5SO 04-18 22:27 → 3N 04-22 15:25
PROVIDERS: ADMIT Internal Medicine; ATTEND Internal Medicine
PROC: 02HV33Z Insertion of Infusion Device into Superior Vena Cava, Percutaneous Approach (ICD-10-PCS; principal; 2020-04-19)
PROC: B548ZZA Ultrasonography of Superior Vena Cava, Guidance (ICD-10-PCS; 2020-04-19)
PROC: B5181ZA Fluoroscopy of Superior Vena Cava using Low Osmolar Contrast, Guidance (ICD-10-PCS; 2020-04-19)
PROC: 30233N1 Transfusion of Nonautologous Red Blood Cells into Peripheral Vein, Percutaneous Approach (ICD-10-PCS; 2020-04-22)
DX: A41.81 Sepsis due to Enterococcus (principal); U07.1 COVID-19; J12.89 Other viral pneumonia; I21.A1 Myocardial infarction type 2; D68.69 Other thrombophilia; N17.9 Acute kidney failure, unspecified; N39.0 Urinary tract infection, site not specified; I31.3 Pericardial effusion (noninflammatory); I48.20 Chronic atrial fibrillation, unspecified; J98.11 Atelectasis; I12.9 Hypertensive chronic kidney disease with stage 1 through stage 4 chronic kidney disease, or unspecified chronic kidney disease; E11.22 Type 2 diabetes mellitus with diabetic chronic kidney disease; N18.3 Chronic kidney disease, stage 3 (moderate); M10.9 Gout, unspecified; D63.1 Anemia in chronic kidney disease; I49.5 Sick sinus syndrome; G40.909 Epilepsy, unspecified, not intractable, without status epilepticus; I25.10 Atherosclerotic heart disease of native coronary artery without angina pectoris; E03.9 Hypothyroidism, unspecified; E83.51 Hypocalcemia; K80.20 Calculus of gallbladder without cholecystitis without obstruction; D50.9 Iron deficiency anemia, unspecified; J43.9 Emphysema, unspecified; K59.00 Constipation, unspecified; N40.0 Benign prostatic hyperplasia without lower urinary tract symptoms; M25.562 Pain in left knee; E78.5 Hyperlipidemia, unspecified; Z79.01 Long term (current) use of anticoagulants; Z79.2 Long term (current) use of antibiotics; Z87.891 Personal history of nicotine dependence; Z22.7 Latent tuberculosis; Z95.0 Presence of cardiac pacemaker; Z90.89 Acquired absence of other organs
CPT/HCPCS: 36415; 36573; 36600; 71045; 71250; 74018; 80048; 80053; 81001; 82272; 82330; 82550; 82565; 82607; 82728; 82803; 83540; 83550; 83605; 83615; 83735; 83880; 84075; 84100; 84145; 84439; 84443; 84450; 84460; 84484; 84550; 85014; 85018; 85025; 85049; 85379; 85610; 85651; 86140; 86480; 86850; 86900; 86923; 87015; 87040; 87077; 87086; 87116; 87186; 87206; 93005; 93308; 93312; 93321; 93325; 94640; 96361; 96374; 99285; G0378; J0290; J0696; J0878; J2543; J2704; J7509; C1751; J1200; J1940; J7030; J7050; P9016; U0001-CS

== ENCOUNTER 2020-05-09 11:21 | Inpatient (IN) | payer MEDICARE ==
[~2020-05-09] VITALS: Ht 162.6 cm; Wt 88.9 kg
[~2020-05-09 11:21] MED LIST changes: +ACET325T26 PO; +ALLO100T64 PO; +ASPI81TA45 PO; +BISA10SU4 PR; +CALC1TAB68 PO; +CARV3.1212 PO; +COLC0.6T37 PO; +FERR-51 PO; +HYDR-3342 PO; +ISON300T10 PO; +PYRI50TA7 PO; +SENN-193 PO
--- NOTE | 2020-05-09 12:23 | NUR ---
ERP EARNEST AT BEDSIDE FOR INITIAL ASSESSMENT.
[2020-05-09 12:58] LABS: MEAN CORPUSCULAR HEMOGLOBIN 31.8 pg (27.5-34.5); MEAN PLATELET VOLUME 9.4 fL (7.4-10.4); PLATELET COUNT 677 x10^3/uL (130-400); RED BLOOD COUNT 2.16 x10^6/uL (4.38-5.82); RED CELL DISTRIBUTION WIDTH 17.6 % (9.4-14.8)
[2020-05-09 12:59] LABS: HEMOGRAM NOTE RECHECKED
--- NOTE | 2020-05-09 12:59 | NUR ---
lab notified RN hemoglobin 6.9, hematocrit 20.6, FABBY Burr notified. states he will be ordering PRBCs.
[2020-05-09 13:01] LABS: ALBUMIN 1.8 g/dL (3.4-5.0); ANION GAP 5 mmol/L (5-15); CALCIUM 7.7 mg/dL (8.5-10.1); CHLORIDE 110 mmol/L (98-107); CREATININE 1.46 mg/dL (0.7-1.3)
[2020-05-09 13:23] LABS: MD YES
[2020-05-09 13:25] LABS: EOS#(MANUAL) 0.08 x10^3/uL (0.0-0.4); EOS% (MANUAL) 1 % (1-7); LYMPH#(MANUAL) 0.53 x10^3/uL (1-3.4); LYMPHS% (MANUAL) 7 % (22-44); MONOS#(MANUAL) 0.15 x10^3/uL (0.3-2.7); MONOS% (MANUAL) 2 % (2-9); SEG#(MANUAL) 6.84 x10^3/uL (1.8-6.8); SEGS% (MANUAL) 90 % (42-75)
[2020-05-09 13:26] LABS: ANISOCYTOSIS 1+
[2020-05-09 13:27] LABS: HYPOCHROMIA 1+; OVALOCYTES 1+
[2020-05-09 13:30] LABS: <PLATELET ESTIMATE> INCREASED; LARGE PLATELETS 1+; SPHEROCYTES 1+
--- NOTE | 2020-05-09 13:50 | NUR ---
PIV PLACED, BLOOD REQUESTED FROM BLOOD BANK.
[2020-05-09 14:10] VITALS: BP 102/37
--- NOTE | 2020-05-09 14:12 | NUR ---
BLOOD TRANSFUSION INTIATED WITH ROBERT FERRARO VERIFYING DETAILS. CONSENT SIGNED BY FABBY TINOCO AND PT PRIOR TO TRANSFUSION. THIS RN CALLED BLOOD BANK TECH LEONARD, AND VERIFIED BLOOD PRODUCT SENT (O POSITIVE PRBCs) IS COMPATIBLE WITH PT'S BLOOD TYPE (A POSITIVE, A1 ANTIGEN NEGATIVE). PT IS A&OX4, RESPS EVEN AND UNLABORED, SPEAKING IN FULL SENTENCES. POSTERIOR LUNG BASES CLEAR AT START OF INFUSION. VITAL SIGNS JUST PRIOR TO INFUSION ARE FOLLOWS: RR 21, HR 63, TEMP 98.3, SPO2 99% ON 4L OXYGEN VIA NC, BP 102/37. PRBCs INFUSING AT RATE OF 120ML/HR VIA IV PUMP, RN MONITORING 1:1 AT BEDSIDE PER TRANSFUSION POLICY. PT DENIES PAIN, PT HAS NO COMPLAINT AT THIS TIME.
[2020-05-09 14:25] VITALS: BP 104/40
--- NOTE | 2020-05-09 14:27 | NUR ---
ERP NOTIFIED PT IS HYPOTENSIVE AT 104/40 WITH BLOOD TRANSFUSING AT THIS TIME.
[2020-05-09 14:46] VITALS: BP 115/42
--- NOTE | 2020-05-09 14:47 | NUR ---
PT TOLERATING BLOOD TRANSFUSION WELL, NO REDNESS, SWELLING, PAIN OR LEAKAGE AT PIV SITE (BLOOD TRANSFUSING THROUGH 20G IN LEFT FOREARM). BLOOD RATE INCREASED FROM 120ML/HR TO 250ML/HR. PT IS SLEEPING, RESPS EVEN AND UNLABORED. VSS. PT DENIES ANY SYMPTOMS WHEN AWAKENED. PT TO BE ADMITTED, AWAITING ROOM ASSIGNMENT AT THIS TIME.
[2020-05-09] MEDS ORDERED: SODIUM CHLORIDE FLUSH 10ML SYR IVF PRN (15:00)
--- NOTE | 2020-05-09 15:20 | NUR ---
REPORT GIVEN TO ROBERT HORTON WHO IS ASSUMING CARE.
--- NOTE | 2020-05-09 15:29 | NUR ---
this RN attempted to call report to receiving RN Inez Wiley, receiving RN unavailable to take report at this time.
--- NOTE | 2020-05-09 15:33 | NUR ---
this RN called [facility] to complete med rec as pt did not arrive with list, appropriate staff did not answer phone when RN transferred. this RN unable to complete med rec for pt at this time. pt tolerating blood transfusion well, no redness/drainage/swelling noted from PIV site. VSS. pt has no complaint at this time.
--- NOTE | 2020-05-09 15:36 | NUR ---
Report received from [facility]. Pt resting, PRBC's infusing, rovided with additional blanket.
[2020-05-09 16:35] VITALS: BP 138/72
[2020-05-09] MEDS ORDERED: hydrALAzine 20 MG/ML, 1ML IVPush PRN (17:00)
[2020-05-09] MEDS ORDERED: MELATONIN 5 MG TABLET PO PRN (17:00)
[2020-05-09] MEDS ORDERED: BISACODYL 10 MG SUPP PR PRN (17:00)
[2020-05-09] MEDS ORDERED: ONDANSETRON 2MG/ML, 2ML IVPush PRN (17:00)
[2020-05-09] MEDS ORDERED: ONDANSETRON ODT 4 MG PO PRN (17:00)
[2020-05-09] MEDS ORDERED: POLYETHYLENE GLYCOL 17 GM PACKET PO PRN (17:00)
[2020-05-09] MEDS ORDERED: ACETAMINOPHEN 325 MG TABLET PO PRN ×2 (17:00)
[2020-05-09] MEDS ORDERED: AMPICILLIN 2 GM IM SCH (17:30)
[2020-05-09 18:00] LABS: HCT (SEDRATE) 28.6 % (39.2-51.8)
[2020-05-09 18:53] VITALS: BP 146/67
[2020-05-09] MEDS: CEFTRIAXONE PMX 2GM/50ML 50 ML IV SCH (19:49)
[2020-05-09] MEDS: AMPICILLIN 2 GM in SODIUM CHLORIDE 0.9% 100 ML IV SCH (20:32)
[2020-05-09] MEDS: ATORVASTATIN 40 MG TABLET PO SCH (20:40)
[2020-05-09] MEDS: SENNA/DOCUSATE TABLET PO SCH (20:40)
[2020-05-09] MEDS: CARVEDILOL 3.125 MG TABLET PO SCH (20:41)
[2020-05-09] MEDS: LEVETIRACETAM 500 MG TABLET PO SCH (20:41)
[2020-05-09] MEDS ORDERED: AMIODARONE 200 MG TABLET PO SCH (21:00)
[2020-05-09] MEDS: LACTATED RINGERS 1,000 ML IV SCH (22:19)
[2020-05-09] MEDS: PANTOPRAZOLE 40 MG IV IVPush SCH (22:19)
[2020-05-10 00:25] VITALS: BP 135/72
[2020-05-10 06:02] LABS: CHLORIDE 111 mmol/L (98-107); MEAN CORPUSCULAR HEMOGLOBIN 32.2 pg (27.5-34.5); MEAN CORPUSCULAR HGB CONC 33.7 g/dL (33.2-36.2); MEAN PLATELET VOLUME 9.5 fL (7.4-10.4); PLATELET COUNT 654 x10^3/uL (130-400); RED BLOOD COUNT 2.54 x10^6/uL (4.38-5.82); RED CELL DISTRIBUTION WIDTH 17.6 % (9.4-14.8)
[2020-05-10] MEDS: PANTOPRAZOLE 40 MG IV IVPush SCH ×2 (06:02→16:30)
[2020-05-10] MEDS: AMPICILLIN 2 GM in SODIUM CHLORIDE 0.9% 100 ML IV SCH ×3 (06:02→22:24)
[2020-05-10] MEDS: CARVEDILOL 3.125 MG TABLET PO SCH ×2 (06:03→16:31)
[2020-05-10 06:09] LABS: ALANINE AMINOTRANSFERASE 22 U/L (12-78); ALBUMIN 1.8 g/dL (3.4-5.0); ALKALINE PHOSPHATASE 46 U/L (45-117); ANION GAP 8 mmol/L (5-15); BILIRUBIN,TOTAL 0.5 mg/dL (0.2-1.0); CREATININE 1.35 mg/dL (0.7-1.3); TOTAL PROTEIN 5.1 g/dL (6.4-8.2)
[2020-05-10 06:50] LABS: BASOPHILS # (AUTO) 0.09 x10^3/uL (0-0.1); BASOPHILS % (AUTO) 1 % (0-1); EOSINOPHILS # (AUTO) 0.27 x10^3/uL (0-0.4); EOSINOPHILS % (AUTO) 3 % (1-7); LYMPHOCYTES # (AUTO) 0.82 x10^3/uL (1-3.4); LYMPHOCYTES % (AUTO) 10 % (22-44); MD SCAN; MONOCYTES # (AUTO) 0.49 x10^3/uL (0.2-0.8); MONOCYTES % (AUTO) 6 % (2-9); NEUTROPHILS # (AUTO) 6.68 x10^3/uL (1.8-6.8); NEUTROPHILS % (AUTO) 80 % (42-75)
[2020-05-10 06:55] VITALS: BP 132/76
[2020-05-10] MEDS ORDERED: PANTOPRAZOLE 40 MG IV IVPush SCH (07:30)
[2020-05-10] MEDS: SENNA/DOCUSATE TABLET PO SCH ×2 (10:08→21:31)
[2020-05-10] MEDS: AMIODARONE 200 MG TABLET PO SCH (10:08)
[2020-05-10] MEDS: ALLOPURINOL 100 MG TABLET PO SCH (10:08)
[2020-05-10] MEDS: TOLTERODINE LA 4MG CAP.ER.24H PO SCH (10:08)
[2020-05-10] MEDS: PYRIDOXINE (Vitamin B6) 50MG TAB PO SCH (10:09)
[2020-05-10] MEDS: TAMSULOSIN 0.4 MG CAP.ER.24H PO SCH (10:09)
[2020-05-10] MEDS: ISONIAZID 300 MG TABLET PO SCH (10:09)
[2020-05-10] MEDS: LEVETIRACETAM 500 MG TABLET PO SCH ×2 (10:09→21:32)
[2020-05-10] MEDS: LEVOTHYROXINE 75 MCG TABLET PO SCH (10:12)
[2020-05-10 12:10] VITALS: BP 158/76
[2020-05-10] MEDS ORDERED: CHLORHEXIDINE 15 ML UDC MM STA (14:37)
[2020-05-10] MEDS ORDERED: CHLORHEXIDINE 15 ML UDC ONE (14:38)
[2020-05-10] MEDS ORDERED: PROPOFOL 10 MG/ML, 20ML ONE (15:02)
[2020-05-10] MEDS ORDERED: PROMETHAZINE 25 MG SUPP PR PRN (15:30)
[2020-05-10] MEDS ORDERED: ONDANSETRON 2MG/ML, 2ML IVPush PRN (15:30)
[2020-05-10] MEDS ORDERED: FENTANYL PF 100 MCG/2ML IV PRN (15:30)
[2020-05-10] MEDS ORDERED: OXYcodone 5 MG/5 ML ORAL.SOL UDC PO PRN (15:30)
[2020-05-10] MEDS ORDERED: PROMETHAZINE 25 MG/ML, 1ML IVPush PRN (15:30)
[2020-05-10] MEDS ORDERED: ACETAMINOPHEN 325 MG TABLET PO PRN (15:30)
[2020-05-10 18:31] VITALS: BP 145/70
[2020-05-10] MEDS: CEFTRIAXONE PMX 2GM/50ML 50 ML IV SCH (21:31)
[2020-05-10] MEDS: LACTATED RINGERS 1,000 ML IV SCH (21:32)
[2020-05-10] MEDS: ATORVASTATIN 40 MG TABLET PO SCH (21:32)
[2020-05-11 00:25] LABS: MICROSCOPIC INDICATED
[2020-05-11 00:30] VITALS: BP 156/75
[2020-05-11 05:14] LABS: BASOPHILS # (AUTO) 0.02 x10^3/uL (0-0.1); BASOPHILS % (AUTO) 0 % (0-1); EOSINOPHILS % (AUTO) 3 % (1-7); LYMPHOCYTES # (AUTO) 0.73 x10^3/uL (1-3.4); LYMPHOCYTES % (AUTO) 8 % (22-44); MD NO; MEAN CORPUSCULAR HEMOGLOBIN 30.9 pg (27.5-34.5); MEAN CORPUSCULAR HGB CONC 32.1 g/dL (33.2-36.2); MEAN PLATELET VOLUME 9.2 fL (7.4-10.4); MONOCYTES # (AUTO) 0.63 x10^3/uL (0.2-0.8); MONOCYTES % (AUTO) 7 % (2-9); NEUTROPHILS # (AUTO) 7.96 x10^3/uL (1.8-6.8); NEUTROPHILS % (AUTO) 83 % (42-75); PLATELET COUNT 715 x10^3/uL (130-400); RED BLOOD COUNT 2.54 x10^6/uL (4.38-5.82); RED CELL DISTRIBUTION WIDTH 17.7 % (9.4-14.8)
[2020-05-11 05:23] LABS: CHLORIDE 110 mmol/L (98-107)
[2020-05-11 05:27] LABS: ANION GAP 9 mmol/L (5-15)
[2020-05-11] MEDS: AMPICILLIN 2 GM in SODIUM CHLORIDE 0.9% 100 ML IV SCH ×3 (06:29→23:22)
[2020-05-11] MEDS: LEVOTHYROXINE 75 MCG TABLET PO SCH (06:29)
[2020-05-11] MEDS: PANTOPRAZOLE 40 MG IV IVPush SCH (06:29)
[2020-05-11] MEDS: CARVEDILOL 3.125 MG TABLET PO SCH ×2 (06:29→18:03)
[2020-05-11 08:12] VITALS: BP 125/67
[2020-05-11] MEDS: SENNA/DOCUSATE TABLET PO SCH ×2 (09:46→20:05)
[2020-05-11] MEDS: LEVETIRACETAM 500 MG TABLET PO SCH ×2 (09:46→20:05)
[2020-05-11] MEDS: TAMSULOSIN 0.4 MG CAP.ER.24H PO SCH (09:47)
[2020-05-11] MEDS: ISONIAZID 300 MG TABLET PO SCH (09:47)
[2020-05-11] MEDS: TOLTERODINE LA 4MG CAP.ER.24H PO SCH (09:47)
[2020-05-11] MEDS: PYRIDOXINE (Vitamin B6) 50MG TAB PO SCH (09:47)
[2020-05-11] MEDS: ALLOPURINOL 100 MG TABLET PO SCH (09:47)
[2020-05-11] MEDS: AMIODARONE 200 MG TABLET PO SCH (09:48)
[2020-05-11 14:00] VITALS: BP 125/65
[2020-05-11] MEDS: FUROSEMIDE 20 MG/2 ML IV SCH ×2 (14:27→18:03)
[2020-05-11 15:30] VITALS: BP 114/57
[2020-05-11 18:04] VITALS: BP 127/62
[2020-05-11 18:32] VITALS: BP 135/73
[2020-05-11] MEDS: ATORVASTATIN 40 MG TABLET PO SCH (20:05)
[2020-05-11 22:51] LABS: OCCULT BLOOD NEGATIVE (NEGATIVE)
[2020-05-11] MEDS: CEFTRIAXONE PMX 2GM/50ML 50 ML IV SCH (22:53)
[2020-05-12 00:09] VITALS: BP 119/68
[2020-05-12 03:37] LABS: BASOPHILS # (AUTO) 0.03 x10^3/uL (0-0.1); BASOPHILS % (AUTO) 0 % (0-1); EOSINOPHILS # (AUTO) 0.36 x10^3/uL (0-0.4); EOSINOPHILS % (AUTO) 4 % (1-7); LYMPHOCYTES # (AUTO) 0.73 x10^3/uL (1-3.4); LYMPHOCYTES % (AUTO) 8 % (22-44); MD NO; MEAN CORPUSCULAR HEMOGLOBIN 30.3 pg (27.5-34.5); MEAN CORPUSCULAR HGB CONC 33.3 g/dL (33.2-36.2); MEAN PLATELET VOLUME 9.4 fL (7.4-10.4); MONOCYTES # (AUTO) 0.63 x10^3/uL (0.2-0.8); MONOCYTES % (AUTO) 7 % (2-9); NEUTROPHILS # (AUTO) 7.92 x10^3/uL (1.8-6.8); NEUTROPHILS % (AUTO) 82 % (42-75); PLATELET COUNT 657 x10^3/uL (130-400); RED BLOOD COUNT 2.95 x10^6/uL (4.38-5.82); RED CELL DISTRIBUTION WIDTH 17.9 % (9.4-14.8)
[2020-05-12 03:42] LABS: ALBUMIN 1.8 g/dL (3.4-5.0); ANION GAP 7 mmol/L (5-15); CALCIUM 7.9 mg/dL (8.5-10.1); CHLORIDE 107 mmol/L (98-107)
[2020-05-12 03:44] LABS: ALANINE AMINOTRANSFERASE 16 U/L (12-78); ALKALINE PHOSPHATASE 47 U/L (45-117); BILIRUBIN, DIRECT 0.2 mg/dL (0.1-0.2); BILIRUBIN,INDIRECT 0.3 mg/dL (0.0-2.0); BILIRUBIN,TOTAL 0.5 mg/dL (0.2-1.0); CREATININE 1.52 mg/dL (0.7-1.3); TOTAL PROTEIN 5.2 g/dL (6.4-8.2)
[2020-05-12 04:03] LABS: ABSOLUTE RETICS # 0.051 x10^6/uL (0.5-1.5); RED BLOOD COUNT 2.87 x10^6/uL (4.38-5.82); RETICULOCYTE COUNT % 1.76 % (0.5-1.5)
[2020-05-12] MEDS: CARVEDILOL 3.125 MG TABLET PO SCH ×3 (06:09→17:21)
[2020-05-12] MEDS: LEVOTHYROXINE 75 MCG TABLET PO SCH (06:09)
[2020-05-12] MEDS: AMPICILLIN 2 GM in SODIUM CHLORIDE 0.9% 100 ML IV SCH ×3 (06:09→23:51)
[2020-05-12] MEDS: PANTOPRAZOLE 40MG TABLET PO SCH (06:09)
[2020-05-12 07:01] VITALS: BP 117/64
[2020-05-12] MEDS ORDERED: POTASSIUM CHLORIDE 20 MEQ TAB.ER.PRT PO ONE ×2 (07:30→14:00)
[2020-05-12] MEDS: SENNA/DOCUSATE TABLET PO SCH ×2 (09:00→20:43)
[2020-05-12 09:11] LABS: MEAN CORPUSCULAR HEMOGLOBIN 29.7 pg (27.5-34.5); MEAN CORPUSCULAR HGB CONC 31.8 g/dL (33.2-36.2); MEAN PLATELET VOLUME 8.9 fL (7.4-10.4); PLATELET COUNT 671 x10^3/uL (130-400); RED BLOOD COUNT 3.07 x10^6/uL (4.38-5.82); RED CELL DISTRIBUTION WIDTH 18.2 % (9.4-14.8)
[2020-05-12 09:33] LABS: MD YES
[2020-05-12 09:34] LABS: EOS#(MANUAL) 0.39 x10^3/uL (0.0-0.4); EOS% (MANUAL) 4 % (1-7); LYMPH#(MANUAL) 0.59 x10^3/uL (1-3.4); LYMPHS% (MANUAL) 6 % (22-44); MONOS#(MANUAL) 0.49 x10^3/uL (0.3-2.7); MONOS% (MANUAL) 5 % (2-9); SEG#(MANUAL) 8.33 x10^3/uL (1.8-6.8); SEGS% (MANUAL) 85 % (42-75)
[2020-05-12 09:35] LABS: <PLATELET ESTIMATE> INCREASED; <PLT MORPHOLOGY> NORMAL PLT MORPH; ANISOCYTOSIS 1+; HYPOCHROMIA 1+
[2020-05-12] MEDS: PYRIDOXINE (Vitamin B6) 50MG TAB PO SCH (09:41)
[2020-05-12] MEDS: TAMSULOSIN 0.4 MG CAP.ER.24H PO SCH (09:41)
[2020-05-12] MEDS: ALLOPURINOL 100 MG TABLET PO SCH (09:42)
[2020-05-12] MEDS: TOLTERODINE LA 4MG CAP.ER.24H PO SCH (09:42)
[2020-05-12] MEDS: AMIODARONE 200 MG TABLET PO SCH (09:42)
[2020-05-12] MEDS: LEVETIRACETAM 500 MG TABLET PO SCH ×2 (09:42→20:43)
[2020-05-12] MEDS: ISONIAZID 300 MG TABLET PO SCH (09:42)
[2020-05-12 12:03] LABS: OCCULT BLOOD NEGATIVE (NEGATIVE)
[2020-05-12 12:50] VITALS: BP 102/66
[2020-05-12] MEDS ORDERED: FUROSEMIDE 20 MG/2 ML IV ONE (16:00)
[2020-05-12 20:08] VITALS: BP 126/75
[2020-05-12] MEDS: CEFTRIAXONE PMX 2GM/50ML 50 ML IV SCH (20:43)
[2020-05-12] MEDS: ATORVASTATIN 40 MG TABLET PO SCH (20:43)
[2020-05-13 00:50] VITALS: BP 134/67
[2020-05-13 04:20] LABS: MEAN CORPUSCULAR HEMOGLOBIN 29.9 pg (27.5-34.5); MEAN PLATELET VOLUME 8.9 fL (7.4-10.4); PLATELET COUNT 608 x10^3/uL (130-400); RED BLOOD COUNT 2.77 x10^6/uL (4.38-5.82); RED CELL DISTRIBUTION WIDTH 17.5 % (9.4-14.8)
[2020-05-13 04:29] LABS: ANION GAP 6 mmol/L (5-15); CHLORIDE 109 mmol/L (98-107)
[2020-05-13 04:49] LABS: MD YES
[2020-05-13 05:48] LABS: BAND#(MANUAL) 0.17 x10^3/uL; BANDS%(MANUAL) 2 % (0-7); BASOS#(MANUAL) 0.09 x10^3/uL (0-0.1); BASOS% (MANUAL) 1 % (0-1); LYMPH#(MANUAL) 0.52 x10^3/uL (1-3.4); LYMPHS% (MANUAL) 6 % (22-44); MONOS#(MANUAL) 0.34 x10^3/uL (0.3-2.7); MONOS% (MANUAL) 4 % (2-9); REACTIVE LYMPHS # (MANUAL) 0.09 x10^3/uL (0-0); REACTIVE LYMPHS % (MANUAL) 1 % (0-0); SEGS% (MANUAL) 86 % (42-75)
[2020-05-13 05:49] LABS: ANISOCYTOSIS 1+
[2020-05-13] MEDS: LEVOTHYROXINE 75 MCG TABLET PO SCH (05:50)
[2020-05-13] MEDS: CARVEDILOL 3.125 MG TABLET PO SCH ×2 (05:50→16:24)
[2020-05-13] MEDS: PANTOPRAZOLE 40MG TABLET PO SCH (05:50)
[2020-05-13 05:52] LABS: <PLATELET ESTIMATE> INCREASED; <PLT MORPHOLOGY> NORMAL PLT MORPH
[2020-05-13 07:15] VITALS: BP 111/65
[2020-05-13] MEDS: TAMSULOSIN 0.4 MG CAP.ER.24H PO SCH (08:14)
[2020-05-13] MEDS: TOLTERODINE LA 4MG CAP.ER.24H PO SCH (08:14)
[2020-05-13] MEDS: AMPICILLIN 2 GM in SODIUM CHLORIDE 0.9% 100 ML IV SCH ×2 (08:14→16:23)
[2020-05-13] MEDS: LEVETIRACETAM 500 MG TABLET PO SCH ×2 (08:14→20:57)
[2020-05-13] MEDS: AMIODARONE 200 MG TABLET PO SCH (08:14)
[2020-05-13] MEDS: ISONIAZID 300 MG TABLET PO SCH (08:14)
[2020-05-13] MEDS: ALLOPURINOL 100 MG TABLET PO SCH (08:14)
[2020-05-13] MEDS: PYRIDOXINE (Vitamin B6) 50MG TAB PO SCH (08:14)
[2020-05-13] MEDS: SENNA/DOCUSATE TABLET PO SCH ×2 (08:15→20:57)
[2020-05-13] MEDS ORDERED: MAGNESIUM SULFATE PMX 2GM/50ML 50 ML IV ONE (10:00)
[2020-05-13] MEDS ORDERED: POTASSIUM CHLORIDE 20 MEQ TAB.ER.PRT PO ONE ×2 (10:00→16:00)
[2020-05-13 12:56] VITALS: BP 137/68
[2020-05-13] MEDS ORDERED: FUROSEMIDE 20 MG/2 ML IV ONE (16:00)
[2020-05-13 18:44] VITALS: BP 100/52
[2020-05-13] MEDS: CEFTRIAXONE PMX 2GM/50ML 50 ML IV SCH (20:56)
[2020-05-13] MEDS: APIXABAN 2.5 MG TABLET PO SCH (20:57)
[2020-05-13] MEDS: ATORVASTATIN 40 MG TABLET PO SCH (20:57)
[2020-05-14] VITALS (7 sets, daily range): BP systolic 112–145; BP diastolic 57–92
[2020-05-14] MEDS: AMPICILLIN 2 GM in SODIUM CHLORIDE 0.9% 100 ML IV SCH ×3 (00:34→16:00)
[2020-05-14] MEDS: LEVOTHYROXINE 75 MCG TABLET PO SCH (06:06)
[2020-05-14] MEDS: CARVEDILOL 3.125 MG TABLET PO SCH ×2 (06:07→17:39)
[2020-05-14] MEDS: PANTOPRAZOLE 40MG TABLET PO SCH (06:07)
[2020-05-14 06:22] LABS: BASOPHILS # (AUTO) 0.01 x10^3/uL (0-0.1); BASOPHILS % (AUTO) 0 % (0-1); EOSINOPHILS # (AUTO) 0.43 x10^3/uL (0-0.4); EOSINOPHILS % (AUTO) 5 % (1-7); LYMPHOCYTES # (AUTO) 0.84 x10^3/uL (1-3.4); LYMPHOCYTES % (AUTO) 10 % (22-44); MD NO; MEAN CORPUSCULAR HEMOGLOBIN 30.6 pg (27.5-34.5); MONOCYTES # (AUTO) 0.46 x10^3/uL (0.2-0.8); MONOCYTES % (AUTO) 6 % (2-9); NEUTROPHILS # (AUTO) 6.53 x10^3/uL (1.8-6.8); NEUTROPHILS % (AUTO) 79 % (42-75); PLATELET COUNT 565 x10^3/uL (130-400); RED BLOOD COUNT 2.75 x10^6/uL (4.38-5.82); RED CELL DISTRIBUTION WIDTH 17.8 % (9.4-14.8)
[2020-05-14 06:33] LABS: ANION GAP 4 mmol/L (5-15); CALCIUM 8.2 mg/dL (8.5-10.1); CHLORIDE 108 mmol/L (98-107); CREATININE 1.55 mg/dL (0.7-1.3)
[2020-05-14] MEDS: AMIODARONE 200 MG TABLET PO SCH (08:53)
[2020-05-14] MEDS: PYRIDOXINE (Vitamin B6) 50MG TAB PO SCH (08:53)
[2020-05-14] MEDS: ISONIAZID 300 MG TABLET PO SCH (08:53)
[2020-05-14] MEDS: SENNA/DOCUSATE TABLET PO SCH ×2 (08:54→21:00)
[2020-05-14] MEDS: APIXABAN 2.5 MG TABLET PO SCH ×2 (08:54→21:23)
[2020-05-14] MEDS: TOLTERODINE LA 4MG CAP.ER.24H PO SCH (08:54)
[2020-05-14] MEDS: LEVETIRACETAM 500 MG TABLET PO SCH ×2 (08:54→21:19)
[2020-05-14] MEDS: TAMSULOSIN 0.4 MG CAP.ER.24H PO SCH (08:54)
[2020-05-14] MEDS: ALLOPURINOL 100 MG TABLET PO SCH (08:55)
[2020-05-14] MEDS ORDERED: RIVAROXABAN 15 MG TABLET PO SCH (09:00)
[2020-05-14] MEDS: FUROSEMIDE 20 MG/2 ML IV SCH (20:13)
[2020-05-14] MEDS: ATORVASTATIN 40 MG TABLET PO SCH (21:18)
[2020-05-14] MEDS: CEFTRIAXONE PMX 2GM/50ML 50 ML IV SCH (21:22)
[2020-05-15] VITALS: BP 120/74
[2020-05-15] MEDS: AMPICILLIN 2 GM in SODIUM CHLORIDE 0.9% 100 ML IV SCH ×4 (00:18→23:33)
[2020-05-15 00:39] VITALS: BP 112/70
[2020-05-15 00:40] VITALS: BP 112/70
[2020-05-15 04:04] LABS: MEAN CORPUSCULAR HEMOGLOBIN 29.9 pg (27.5-34.5); MEAN CORPUSCULAR HGB CONC 32.2 g/dL (33.2-36.2); MEAN PLATELET VOLUME 9.5 fL (7.4-10.4); PLATELET COUNT 500 x10^3/uL (130-400); RED CELL DISTRIBUTION WIDTH 17.5 % (9.4-14.8)
[2020-05-15 04:12] LABS: ANION GAP 5 mmol/L (5-15); CALCIUM 8.2 mg/dL (8.5-10.1); CHLORIDE 106 mmol/L (98-107)
[2020-05-15 04:14] LABS: CREATININE 1.65 mg/dL (0.7-1.3)
[2020-05-15] MEDS: LEVOTHYROXINE 75 MCG TABLET PO SCH (05:34)
[2020-05-15] MEDS: CARVEDILOL 3.125 MG TABLET PO SCH ×2 (05:34→16:54)
[2020-05-15] MEDS: PANTOPRAZOLE 40MG TABLET PO SCH (05:34)
[2020-05-15 05:44] LABS: MD YES
[2020-05-15 05:45] LABS: <PLATELET ESTIMATE> INCREASED; <PLT MORPHOLOGY> NORMAL PLT MORPH; ANISOCYTOSIS 1+; BAND#(MANUAL) 0.09 x10^3/uL; BANDS%(MANUAL) 1 % (0-7); EOS% (MANUAL) 9 % (1-7); LYMPHS% (MANUAL) 9 % (22-44); MONOS#(MANUAL) 0.36 x10^3/uL (0.3-2.7); MONOS% (MANUAL) 4 % (2-9); SEG#(MANUAL) 6.85 x10^3/uL (1.8-6.8); SEGS% (MANUAL) 77 % (42-75)
[2020-05-15 08:08] VITALS: BP 109/66
[2020-05-15] MEDS: TOLTERODINE LA 4MG CAP.ER.24H PO SCH (08:54)
[2020-05-15] MEDS: AMIODARONE 200 MG TABLET PO SCH (08:54)
[2020-05-15] MEDS: ALLOPURINOL 100 MG TABLET PO SCH (08:54)
[2020-05-15] MEDS: FUROSEMIDE 20 MG/2 ML IV SCH (08:54)
[2020-05-15] MEDS: LEVETIRACETAM 500 MG TABLET PO SCH ×2 (08:55→19:45)
[2020-05-15] MEDS: SENNA/DOCUSATE TABLET PO SCH ×2 (08:55→19:45)
[2020-05-15] MEDS: PYRIDOXINE (Vitamin B6) 50MG TAB PO SCH (08:55)
[2020-05-15] MEDS: TAMSULOSIN 0.4 MG CAP.ER.24H PO SCH (08:55)
[2020-05-15] MEDS: ISONIAZID 300 MG TABLET PO SCH (08:55)
[2020-05-15] MEDS: APIXABAN 2.5 MG TABLET PO SCH ×2 (08:55→19:45)
[2020-05-15 13:12] VITALS: BP 108/61
[2020-05-15 18:49] VITALS: BP 136/69
[2020-05-15] MEDS: ATORVASTATIN 40 MG TABLET PO SCH (19:45)
[2020-05-16 00:44] VITALS: BP 103/57
[2020-05-16] MEDS: PANTOPRAZOLE 40MG TABLET PO SCH (05:59)
[2020-05-16] MEDS: LEVOTHYROXINE 75 MCG TABLET PO SCH (05:59)
[2020-05-16] MEDS: CARVEDILOL 3.125 MG TABLET PO SCH ×2 (05:59→17:00)
[2020-05-16 06:16] LABS: BASOPHILS # (AUTO) 0.03 x10^3/uL (0-0.1); BASOPHILS % (AUTO) 0 % (0-1); EOSINOPHILS # (AUTO) 0.47 x10^3/uL (0-0.4); EOSINOPHILS % (AUTO) 5 % (1-7); HCT (SEDRATE) 27.4 % (39.2-51.8); LYMPHOCYTES # (AUTO) 0.84 x10^3/uL (1-3.4); LYMPHOCYTES % (AUTO) 9 % (22-44); MD NO; MEAN CORPUSCULAR HEMOGLOBIN 30.3 pg (27.5-34.5); MEAN CORPUSCULAR HGB CONC 32.8 g/dL (33.2-36.2); MEAN PLATELET VOLUME 9.5 fL (7.4-10.4); MONOCYTES # (AUTO) 0.48 x10^3/uL (0.2-0.8); MONOCYTES % (AUTO) 5 % (2-9); NEUTROPHILS # (AUTO) 7.23 x10^3/uL (1.8-6.8); NEUTROPHILS % (AUTO) 80 % (42-75); PLATELET COUNT 432 x10^3/uL (130-400); RED BLOOD COUNT 3.03 x10^6/uL (4.38-5.82); RED CELL DISTRIBUTION WIDTH 17.8 % (9.4-14.8)
[2020-05-16 06:28] LABS: ALANINE AMINOTRANSFERASE 12 U/L (12-78); ALBUMIN 1.5 g/dL (3.4-5.0); ANION GAP 8 mmol/L (5-15); CALCIUM 7.7 mg/dL (8.5-10.1); CHLORIDE 105 mmol/L (98-107); CREATININE 1.73 mg/dL (0.7-1.3)
[2020-05-16 06:34] LABS: ALKALINE PHOSPHATASE 47 U/L (45-117); BILIRUBIN,TOTAL 0.4 mg/dL (0.2-1.0); TOTAL PROTEIN 5.1 g/dL (6.4-8.2)
[2020-05-16 07:28] VITALS: BP 118/70
[2020-05-16] MEDS: AMPICILLIN 2 GM in SODIUM CHLORIDE 0.9% 100 ML IV SCH ×2 (07:47→16:59)
[2020-05-16] MEDS: SENNA/DOCUSATE TABLET PO SCH ×2 (09:32→21:14)
[2020-05-16] MEDS: TAMSULOSIN 0.4 MG CAP.ER.24H PO SCH (09:32)
[2020-05-16] MEDS: PYRIDOXINE (Vitamin B6) 50MG TAB PO SCH (09:33)
[2020-05-16] MEDS: TOLTERODINE LA 4MG CAP.ER.24H PO SCH (09:33)
[2020-05-16] MEDS: APIXABAN 2.5 MG TABLET PO SCH ×2 (09:33→21:14)
[2020-05-16] MEDS: LEVETIRACETAM 500 MG TABLET PO SCH ×2 (09:33→21:14)
[2020-05-16] MEDS: AMIODARONE 200 MG TABLET PO SCH (09:33)
[2020-05-16] MEDS: ISONIAZID 300 MG TABLET PO SCH (09:33)
[2020-05-16] MEDS: ALLOPURINOL 100 MG TABLET PO SCH (09:33)
[2020-05-16 13:12] VITALS: BP 94/51
[2020-05-16 20:22] VITALS: BP 124/62
[2020-05-16] MEDS: ATORVASTATIN 40 MG TABLET PO SCH (21:14)
[2020-05-17] MEDS: AMPICILLIN 2 GM in SODIUM CHLORIDE 0.9% 100 ML IV SCH ×2 (00:53→08:57)
[2020-05-17 01:12] VITALS: BP 110/59
[2020-05-17] MEDS: LEVOTHYROXINE 75 MCG TABLET PO SCH ×2 (05:51→09:05)
[2020-05-17] MEDS: CARVEDILOL 3.125 MG TABLET PO SCH ×3 (05:51→18:06)
[2020-05-17] MEDS: PANTOPRAZOLE 40MG TABLET PO SCH ×2 (05:51→09:06)
[2020-05-17 06:06] LABS: BASOPHILS # (AUTO) 0.02 x10^3/uL (0-0.1); BASOPHILS % (AUTO) 0 % (0-1); EOSINOPHILS # (AUTO) 0.53 x10^3/uL (0-0.4); EOSINOPHILS % (AUTO) 6 % (1-7); LYMPHOCYTES # (AUTO) 0.87 x10^3/uL (1-3.4); LYMPHOCYTES % (AUTO) 10 % (22-44); MD NO; MEAN CORPUSCULAR HEMOGLOBIN 30.5 pg (27.5-34.5); MEAN CORPUSCULAR HGB CONC 33.2 g/dL (33.2-36.2); MEAN PLATELET VOLUME 9.3 fL (7.4-10.4); MONOCYTES # (AUTO) 0.53 x10^3/uL (0.2-0.8); MONOCYTES % (AUTO) 6 % (2-9); NEUTROPHILS # (AUTO) 6.53 x10^3/uL (1.8-6.8); NEUTROPHILS % (AUTO) 77 % (42-75); PLATELET COUNT 424 x10^3/uL (130-400); RED BLOOD COUNT 3.04 x10^6/uL (4.38-5.82); RED CELL DISTRIBUTION WIDTH 17.7 % (9.4-14.8)
[2020-05-17 06:16] LABS: ANION GAP 6 mmol/L (5-15); CALCIUM 8.4 mg/dL (8.5-10.1); CHLORIDE 109 mmol/L (98-107); CREATININE 1.58 mg/dL (0.7-1.3)
[2020-05-17 07:42] VITALS: BP 124/71
[2020-05-17] MEDS: ALLOPURINOL 100 MG TABLET PO SCH (08:58)
[2020-05-17] MEDS: PYRIDOXINE (Vitamin B6) 50MG TAB PO SCH (08:58)
[2020-05-17] MEDS: SENNA/DOCUSATE TABLET PO SCH ×3 (08:58→21:12)
[2020-05-17] MEDS: APIXABAN 2.5 MG TABLET PO SCH ×2 (08:58→21:12)
[2020-05-17] MEDS: ISONIAZID 300 MG TABLET PO SCH (08:58)
[2020-05-17] MEDS: AMIODARONE 200 MG TABLET PO SCH (08:58)
[2020-05-17] MEDS: TOLTERODINE LA 4MG CAP.ER.24H PO SCH (08:58)
[2020-05-17] MEDS: TAMSULOSIN 0.4 MG CAP.ER.24H PO SCH (08:58)
[2020-05-17] MEDS: LEVETIRACETAM 500 MG TABLET PO SCH ×2 (08:59→21:12)
[2020-05-17 12:50] VITALS: BP 88/47
[2020-05-17 17:56] VITALS: BP 124/68
[2020-05-17 20:00] VITALS: BP 98/63
[2020-05-17] MEDS: ATORVASTATIN 40 MG TABLET PO SCH (21:12)
[2020-05-18 01:06] VITALS: BP 122/70
[2020-05-18] MEDS: LEVOTHYROXINE 75 MCG TABLET PO SCH (04:47)
[2020-05-18] MEDS: PANTOPRAZOLE 40MG TABLET PO SCH (04:47)
[2020-05-18] MEDS: CARVEDILOL 3.125 MG TABLET PO SCH ×2 (04:47→16:57)
[2020-05-18 05:34] LABS: BASOPHILS # (AUTO) 0.04 x10^3/uL (0-0.1); BASOPHILS % (AUTO) 0 % (0-1); EOSINOPHILS # (AUTO) 0.55 x10^3/uL (0-0.4); EOSINOPHILS % (AUTO) 6 % (1-7); LYMPHOCYTES # (AUTO) 0.95 x10^3/uL (1-3.4); LYMPHOCYTES % (AUTO) 10 % (22-44); MD NO; MEAN CORPUSCULAR HEMOGLOBIN 30.6 pg (27.5-34.5); MEAN CORPUSCULAR HGB CONC 33.1 g/dL (33.2-36.2); MEAN PLATELET VOLUME 9.9 fL (7.4-10.4); MONOCYTES # (AUTO) 0.59 x10^3/uL (0.2-0.8); MONOCYTES % (AUTO) 6 % (2-9); NEUTROPHILS # (AUTO) 7.18 x10^3/uL (1.8-6.8); NEUTROPHILS % (AUTO) 77 % (42-75); PLATELET COUNT 400 x10^3/uL (130-400); RED CELL DISTRIBUTION WIDTH 17.3 % (9.4-14.8)
[2020-05-18 05:43] LABS: ANION GAP 6 mmol/L (5-15); CALCIUM 7.9 mg/dL (8.5-10.1); CHLORIDE 108 mmol/L (98-107); CREATININE 1.54 mg/dL (0.7-1.3)
[2020-05-18 07:25] VITALS: BP 117/72
[2020-05-18] MEDS: ISONIAZID 300 MG TABLET PO SCH (08:51)
[2020-05-18] MEDS: ALLOPURINOL 100 MG TABLET PO SCH (08:51)
[2020-05-18] MEDS: SENNA/DOCUSATE TABLET PO SCH ×2 (08:51→19:43)
[2020-05-18] MEDS: PYRIDOXINE (Vitamin B6) 50MG TAB PO SCH (08:52)
[2020-05-18] MEDS: APIXABAN 2.5 MG TABLET PO SCH ×2 (08:52→19:42)
[2020-05-18] MEDS: AMIODARONE 200 MG TABLET PO SCH (08:52)
[2020-05-18] MEDS: LEVETIRACETAM 500 MG TABLET PO SCH ×2 (08:52→19:42)
[2020-05-18] MEDS: TOLTERODINE LA 4MG CAP.ER.24H PO SCH (08:52)
[2020-05-18] MEDS: TAMSULOSIN 0.4 MG CAP.ER.24H PO SCH (08:52)
[2020-05-18 13:31] VITALS: BP 121/55
[2020-05-18] MEDS: ATORVASTATIN 40 MG TABLET PO SCH (19:42)
[2020-05-18 19:58] VITALS: BP 107/54
[2020-05-19 00:45] VITALS: BP 117/56
[2020-05-19] MEDS: CARVEDILOL 3.125 MG TABLET PO SCH (04:45)
[2020-05-19] MEDS: PANTOPRAZOLE 40MG TABLET PO SCH (04:46)
[2020-05-19] MEDS: LEVOTHYROXINE 75 MCG TABLET PO SCH (04:46)
[2020-05-19 05:25] LABS: BASOPHILS # (AUTO) 0.02 x10^3/uL (0-0.1); BASOPHILS % (AUTO) 0 % (0-1); EOSINOPHILS # (AUTO) 0.63 x10^3/uL (0-0.4); EOSINOPHILS % (AUTO) 7 % (1-7); LYMPHOCYTES # (AUTO) 1.13 x10^3/uL (1-3.4); LYMPHOCYTES % (AUTO) 13 % (22-44); MD NO; MEAN CORPUSCULAR HEMOGLOBIN 30.7 pg (27.5-34.5); MEAN PLATELET VOLUME 9.8 fL (7.4-10.4); MONOCYTES # (AUTO) 0.46 x10^3/uL (0.2-0.8); MONOCYTES % (AUTO) 5 % (2-9); NEUTROPHILS # (AUTO) 6.39 x10^3/uL (1.8-6.8); NEUTROPHILS % (AUTO) 74 % (42-75); PLATELET COUNT 369 x10^3/uL (130-400); RED BLOOD COUNT 3.09 x10^6/uL (4.38-5.82); RED CELL DISTRIBUTION WIDTH 17.7 % (9.4-14.8)
[2020-05-19 05:34] LABS: CHLORIDE 109 mmol/L (98-107)
[2020-05-19 05:39] LABS: ANION GAP 5 mmol/L (5-15); CALCIUM 8.5 mg/dL (8.5-10.1); CREATININE 1.67 mg/dL (0.7-1.3)
[2020-05-19 09:35] VITALS: BP 134/68
[2020-05-19] MEDS: TAMSULOSIN 0.4 MG CAP.ER.24H PO SCH (09:46)
[2020-05-19] MEDS: ALLOPURINOL 100 MG TABLET PO SCH (09:46)
[2020-05-19] MEDS: SENNA/DOCUSATE TABLET PO SCH (09:46)
[2020-05-19] MEDS: ISONIAZID 300 MG TABLET PO SCH (09:46)
[2020-05-19] MEDS: PYRIDOXINE (Vitamin B6) 50MG TAB PO SCH (09:46)
[2020-05-19] MEDS: APIXABAN 2.5 MG TABLET PO SCH (09:47)
[2020-05-19] MEDS: TOLTERODINE LA 4MG CAP.ER.24H PO SCH (09:47)
[2020-05-19] MEDS: AMIODARONE 200 MG TABLET PO SCH (09:48)
[2020-05-19] MEDS: LEVETIRACETAM 500 MG TABLET PO SCH (09:48)
[2020-05-19] MEDS ORDERED: TAMS-11 PO (11:47)
[2020-05-19] MEDS ORDERED: TOLT2TAB4 PO (11:47)
[2020-05-19] MEDS ORDERED: AMIO200T42 PO (11:47)
[2020-05-19] MEDS ORDERED: ISON300T10 PO (11:47)
[2020-05-19] MEDS ORDERED: ALLO100T64 PO (11:47)
[2020-05-19] MEDS ORDERED: PYRI50TA7 PO (11:47)
[2020-05-19] MEDS ORDERED: APIX2.5T PO (11:47)
[2020-05-19] MEDS ORDERED: PANT40TA6 PO (11:47)
[2020-05-19] MEDS ORDERED: ATOR40TA PO (11:47)
[2020-05-19] MEDS ORDERED: LEVE500T53 PO (11:47)
[2020-05-19] MEDS ORDERED: ASPI81TA45 PO (11:47)
[2020-05-19] MEDS ORDERED: LEVO75TA5 PO (11:47)
[2020-05-19] MEDS ORDERED: FERR-51 PO (11:47)
[2020-05-19] MEDS ORDERED: CARV3.1212 PO (11:47)
[2020-05-19] MEDS ORDERED: ACET325T26 PO (11:47)
== END 2020-05-19 13:42 | disposition left against medical advice (07) | DRG 871 ==
LOC: ED 13:54 → EDIP 14:39 → 3N 16:15
PROVIDERS: ADMIT Hospitalist; ATTEND Hospitalist
PROC: 30233N1 Transfusion of Nonautologous Red Blood Cells into Peripheral Vein, Percutaneous Approach (ICD-10-PCS; principal; 2020-05-09)
PROC: 0DJ08ZZ Inspection of Upper Intestinal Tract, Via Natural or Artificial Opening Endoscopic (ICD-10-PCS; 2020-05-10)
DX: A41.81 Sepsis due to Enterococcus (principal); J12.89 Other viral pneumonia; I48.20 Chronic atrial fibrillation, unspecified; I13.0 Hypertensive heart and chronic kidney disease with heart failure and stage 1 through stage 4 chronic kidney disease, or unspecified chronic kidney disease; I49.5 Sick sinus syndrome; I25.10 Atherosclerotic heart disease of native coronary artery without angina pectoris; D64.9 Anemia, unspecified; E03.9 Hypothyroidism, unspecified; E78.5 Hyperlipidemia, unspecified; E83.42 Hypomagnesemia; E83.51 Hypocalcemia; K59.00 Constipation, unspecified; M10.9 Gout, unspecified; E87.6 Hypokalemia; G40.909 Epilepsy, unspecified, not intractable, without status epilepticus; Z53.29 Procedure and treatment not carried out because of patient's decision for other reasons; J43.9 Emphysema, unspecified; K22.2 Esophageal obstruction; I50.9 Heart failure, unspecified; N18.3 Chronic kidney disease, stage 3 (moderate); Z20.828 Contact with and (suspected) exposure to other viral communicable diseases; E11.22 Type 2 diabetes mellitus with diabetic chronic kidney disease; K80.20 Calculus of gallbladder without cholecystitis without obstruction; Z79.01 Long term (current) use of anticoagulants; Z87.891 Personal history of nicotine dependence; Z95.0 Presence of cardiac pacemaker; Z86.19 Personal history of other infectious and parasitic diseases; Z86.15 Personal history of latent tuberculosis infection; Z87.11 Personal history of peptic ulcer disease
CPT/HCPCS: 36415; 71045; 80048; 80053; 80076; 81001; 82040; 82272; 82607; 82728; 83010; 83540; 83550; 83615; 83735; 84100; 84443; 85014; 85018; 85025; 85045; 85379; 85651; 86140; 86850; 86880; 86900; 86902; 86923; 87086; 87635; 88305; 88312; 93005; 93306; G0378; J0290; J0696; J2704; C9113; J1940; J3475; J7120; P9016